=== PATIENT | female | born 1985 | race Caucasian/White ===

== ENCOUNTER 2016-10-30 12:30 | Emergency (ER) | payer OTHER ==
[~2016-10-30] VITALS: Ht 167.6 cm; Wt 102.1 kg
[~2016-10-30 12:30] MED LIST: INTB30 IM
[2016-10-30 12:34] VITALS: TEMP 36.8; Ht 167.6 cm; Wt 102.1 kg
[2016-10-30] MEDS ORDERED: OXYCODONE HCL IR 5 MG TAB (IMMEDIATE RELEASE) PO STA (12:56)
[2016-10-30] MEDS ORDERED: KETOROLAC TROMETHAMINE 60 MG/2 ML VIAL IM STA (12:56)
--- NOTE | 2016-10-30 13:38 | DIAGNOSTIC IMAGING REPORT ---
RIGHT SHOULDER 3 VIEWS CLINICAL HISTORY: Right shoulder pain. No reported history of trauma. FINDINGS: 3 views of the right shoulder are obtained. No prior studies are available for comparison at the time of dictation. The skeletal structures are well mineralized. No fracture or dislocation is seen. The joint spaces are preserved. Minimal calcific tendinopathy is suggested. Fusion hardware is noted in the lower cervical spine. The overlying soft tissues are within normal limits. The imaged right lung parenchyma appears clear. IMPRESSION: 1. No acute bony abnormality is seen in the right shoulder. 2. Question mild calcific tendinopathy. Electronically signed by: Conner Gibson M.D. 10/30/2016 1:36 PM Dictated Date/Time: 10/30/2016 1:35 PM
[2016-10-30 13:53] VITALS: BP 150/98; PULSE 73; O2SAT 97
[2016-10-30] MEDS ORDERED: PRED50TA PO (14:00)
--- NOTE | 2016-10-30 14:01 | EMERGENCY ROOM VISIT NOTE ---
ED Visit Note First contact with patient: 12:44 Chief Complaint: RIGHT Arm/Shoulder Pain History of Present Illness: Patient is a 31-year-old female who presents to the emergency department today for evaluation of her RIGHT shoulder pain. She's had ongoing history of pain in her RIGHT shoulder for the past several weeks. She reports that her shoulder "popped" yesterday and now she has pain and numbness down the arm. She had pain initially, reports that the numbness has persisted since she is not moved her arm secondary to this discomfort. The patient rates her current discomfort as a 10/10. She denies any neck pain, chest pain, pleuritic pain, elbow pain, wrist pain. She is not been evaluated for this to this point. Medications: Reviewed and discussed with the patient. Allergies: Hydrocodone, loratadine PMH: Reviewed and discussed with the patient. SHx: Patient is a 31-year-old female who lives locally. ROS: All pertinent positive and negative review of systems are appropriately documented in the History of Present Illness. Physical Exam: VITAL SIGNS - Vital signs and nursing notes were reviewed. GENERAL - 31-year-old female appearing her stated age and in noticeable discomfort throughout the exam. NECK - FROM of the cervical spine. No spinous process or paraspinal muscle tenderness to palpation. No nuchal rigidity. LUNGS - Chest wall symmetric without accessory muscle use, intercostals retractions, or central cyanosis. Normal vesicular breath sounds CTA B/L. No wheezes, rales, or rhonchi appreciated. CARDIAC - RRR with S1/S2. No murmur, rubs, or gallops appreciated. MUSCULOSKELETAL - Active ROM of the RIGHT shoulder was limited in all directions. 30 of abduction. No step-off deformities of the clavicle were palpable. Subjective tenderness over the AC joint with palpation. Subjective tenderness to palpation at the bicipital insertion. Subjective tenderness to palpation over the deltoid. NEUROLOGIC - SENSORY: Spinothalamic tract was found to be intact with ability to discriminate sharp versus dull sensation at the level of the RIGHT side of the neck down to the fingertips. No sensory deficits of the dorsal column were appreciated utilizing light touch for evaluation. VASCULAR - Capillary refill was brisk. +3/5 radial pulse palpated. IMAGING: RIGHT SHOULDER 3 VIEWS CLINICAL HISTORY: Right shoulder pain. No reported history of trauma. FINDINGS: 3 views of the right shoulder are obtained. No prior studies are available for comparison at the time of dictation. The skeletal structures are well mineralized. No fracture or dislocation is seen. The joint spaces are preserved. Minimal calcific tendinopathy is suggested. Fusion hardware is noted in the lower cervical spine. The overlying soft tissues are within normal limits. The imaged right lung parenchyma appears clear. IMPRESSION: 1. No acute bony abnormality is seen in the right shoulder. 2. Question mild calcific tendinopathy. ED Course: Patient was seen and evaluated by myself. Patient was treated with 60 mg Toradol and 1 OxyIR orally for pain. X-ray of the affected shoulder was obtained. Imaging results as above. Imaging results were reviewed with the patient who acknowledges understanding. I had reviewed the [employer] drug monitoring program website. The patient does receive multiple prescriptions for narcotic pain medications from multiple different providers. The patient was provided a prescription for prednisone to be used for ongoing symptoms. She was encouraged to continue her narcotic prescription to prescribed by other providers. The patient questioned this decision, however I explained her that she would receive no further narcotic pain medications from this point. She was educated on worrisome symptoms for return visit to the emergency department. Patient discharged home in good condition. In the evaluation and treatment of this patient, the following differential diagnoses were considered: Shoulder Contusion, Shoulder Fracture, Shoulder Dislocation, Thoracic Outlet Syndrome, Adhesive Capsulitis, Rotator Cuff Tear, Proximal Clavicle Head Fracture, Apical Pneumonia, Pneumothorax, Hemothorax, or TB. Impression: RIGHT Shoulder Pain - Calcific Tendonitis Discharge Instructions: You have been treated in the Emergency Department for Shoulder Pain - Calcific Tendonitis. You have received pain medicine in the emergency department which impairs your ability to operate a vehicle. It is illegal for you to drive after receiving these medicines. Continue your narcotic pain medication as prescribed. You have been prescribed Prednisone 50 mg to be taken orally once a day for the next 5 days. This is an anti-inflammatory medicine to be used to help minimize your symptoms. You should take the COMPLETE course of the medication. For pain control, you can use the following skcj-lbf-[id number] medicines (if >12 yo): - Regular strength (325mg/tab) Tylenol (acetaminophen) 2 tabs every 4-6 hours as needed. Do not exceed 12 tablets in a 24 hour period. Avoid taking more than 4 grams (4000 mg) of Tylenol per day. This includes any other sources of acetaminophen you may take on a regular basis. - Regular strength (200 mg/tab) Advil (ibuprofen) 1-2 tabs every 4-6 hours as needed. Do not exceed a dose of 3200 mg per day. If this is a recent injury (<24 hrs), ice can be applied to the area of pain for the first 3 days to help decrease pain and inflammation. You have been provided the number for an Orthopaedic Surgeon. You should call this number as soon as possible to establish a follow-up visit from today's Emergency Department visit. Keep the shoulder brace/sling in place until evaluated by Orthopedics. Continue to perform range of motion exercises several times per day to help prevent the development of a "frozen shoulder". Return to the Emergency Department if your current symptoms worsen despite treatment course outlined above, or if you develop any of the following symptoms : intractable pain despite aforementioned treatment course or new onset of numbness or tingling of the arm. Current/Historical Medications Scheduled Cholecalciferol (Vitamin D), 4,000 INTER.UNIT PO DAILY Interferon Beta-1A (Avonex Pen), 30 MCG IM WK Magnesium Chloride (Mag64), 64 MG PO DAILY Montelukast Sodium (Singulair), 10 MG PO DAILY Naratriptan Hcl (Amerge), 2.5 MG PO UD Riboflavin (Vitamin B-2), 200 MG PO BID Scheduled PRN Eletriptan (Relpax), 40 MG PO UD PRN for Migraine Sumatriptan Succinate (Imitrex Statdose), 6 MG IM UD PRN for Migraine Sumatriptan Succinate (Imitrex), 50 MG PO UD PRN for Migraine Allergies Coded Allergies: Loratadine (Verified Allergy, Severe, "TONGUE SWELLS", 10/30/16) Hydrocodone (Verified Adverse Reaction, Unknown, "GETS MIGRAINES WHEN IT WEARS OFF", 10/30/16) Vital Signs Date Time Temp Pulse Resp B/P Pulse Ox O2 Delivery O2 Flow Rate FiO2 10/30/16 13:53 73 16 150/98 97 10/30/16 12:34 36.8 96 18 127/85 97 Room Air Medications Administered Medications (Trade) Dose Ordered Sig/Sunny Route Start Time Stop Time Status Last Admin Dose Admin Ketorolac Tromethamine (Toradol Inj) 60 mg NOW STAT IM 10/30/16 12:56 10/30/16 12:58 DC 10/30/16 13:21 60 MG Oxycodone HCl (Roxicodone Immediate Rel Tab) 5 mg NOW STAT PO 10/30/16 12:56 10/30/16 12:58 DC 10/30/16 13:19 5 MG Departure Information Impression Primary Impression: Shoulder pain, right Additional Impression: Calcific tendinitis of right shoulder Dispostion Home / Self-Care Condition GOOD Referrals Lucio Evans D.O. (PCP) Louis Singh M.D. Patient Instructions ED Tendinitis Calcific, My [facility] Additional Instructions You have been treated in the Emergency Department for Shoulder Pain - Calcific Tendonitis. You have received pain medicine in the emergency department which impairs your ability to operate a vehicle. It is illegal for you to drive after receiving these medicines. Continue your narcotic pain medication as prescribed. You have been prescribed Prednisone 50 mg to be taken orally once a day for the next 5 days. This is an anti-inflammatory medicine to be used to help minimize your symptoms. You should take the COMPLETE course of the medication. For pain control, you can use the following tjln-dlj-rtjyday medicines (if >12 yo): - Regular strength (325mg/tab) Tylenol (acetaminophen) 2 tabs every 4-6 hours as needed. Do not exceed 12 tablets in a 24 hour period. Avoid taking more than 4 grams (4000 mg) of Tylenol per day. This includes any other sources of acetaminophen you may take on a regular basis. - Regular strength (200 mg/tab) Advil (ibuprofen) 1-2 tabs every 4-6 hours as needed. Do not exceed a dose of 3200 mg per day. If this is a recent injury (<24 hrs), ice can be applied to the area of pain for the first 3 days to help decrease pain and inflammation. You have been provided the number for an Orthopaedic Surgeon. You should call this number as soon as possible to establish a follow-up visit from today's Emergency Department visit. Keep the shoulder brace/sling in place until evaluated by Orthopedics. Continue to perform range of motion exercises several times per day to help prevent the development of a "frozen shoulder". Return to the Emergency Department if your current symptoms worsen despite treatment course outlined above, or if you develop any of the following symptoms : intractable pain despite aforementioned treatment course or new onset of numbness or tingling of the arm. Problem Qualifiers Primary Impression: Shoulder pain, right Chronicity: acute Qualified Codes: M25.511 - Pain in right shoulder
[2016-11-13] MEDS ORDERED: RIBO100T9 PO (08:58)
[2016-11-13] MEDS ORDERED: SUMA50TA15 PO (08:58)
[2016-11-13] MEDS ORDERED: SUMA6KIT IM (08:58)
[2016-11-13] MEDS ORDERED: MONT1TAB3 PO (08:58)
[2016-11-13] MEDS ORDERED: SLWMEC PO (08:58)
[2016-11-13] MEDS ORDERED: ELET40TA PO (08:58)
[2016-11-13] MEDS ORDERED: INTE1KIT5 IM (13:00)
[2016-11-13] MEDS ORDERED: NARA2.5T2 PO (15:09)
== END 2016-10-30 14:13 | disposition home or self-care (01) ==
LOC: C.EDB 12:32 → C.EDD 14:13
DX: M75.31 Calcific tendinitis of right shoulder (principal); Z79.899 Other long term (current) drug therapy

== ENCOUNTER 2016-11-13 15:57 | Emergency (ER) | payer OTHER ==
[~2016-11-13] VITALS: Ht 167.6 cm; Wt 100.5 kg
[~2016-11-13 15:57] MED LIST changes: +ELET40TA PO; -INTB30 IM; +INTE1KIT5 IM; +MONT1TAB3 PO; +NARA2.5T2 PO; +RIBO100T9 PO; +SLWMEC PO; +SUMA50TA15 PO; +SUMA6KIT IM
[2016-11-13 16:33] VITALS: TEMP 36.7; Ht 167.6 cm; Wt 100.5 kg
[2016-11-13] MEDS ORDERED: SODIUM CHLORIDE 0.9% 1000ML 1,000 ML IV STA (18:17)
[2016-11-13] MEDS ORDERED: ESCI1TAB10 PO (18:37)
[2016-11-13 18:40] LABS: BASO % 0.6 %; BASO ABS # 0.08 K/uL (0-0.2); COMPLETE YES; EOS % 1.9 %; HEMATOCRIT 42.3 % (37-47); IG% 0.6 %; LYMPH % 26.5 %; LYMPH ABS # 3.38 K/uL (1.2-3.4); MEAN CELL VOLUME 91.6 fL (80-100); MEAN CORPUSCULAR HEMOGLOBIN 31.2 pg (25-34); MEAN PLATELET VOLUME 10.5 fL (7.4-10.4); NEUT % 65.4 %; PLATELET COUNT 306 K/uL (130-400); RED BLOOD COUNT 4.62 M/uL (4.2-5.4); WHITE BLOOD COUNT 12.76 K/uL (4.8-10.8)
[2016-11-13] MEDS ORDERED: MoRPHine SULFATE 4 MG/ML 1 ML CARP\\VIAL IV STA (18:59)
[2016-11-13] MEDS ORDERED: ALBUT/IPRATROP 3MG/0.5MG NEB 3 ML VIAL INH STA ×2 (18:59→21:34)
[2016-11-13 19:05] LABS: CALCIUM 9.3 mg/dl (8.5-10.1); CREATININE 0.68 mg/dl (0.60-1.20); MAGNESIUM 1.9 mg/dl (1.8-2.4); POTASSIUM 3.6 mmol/L (3.5-5.1)
[2016-11-13 19:08] LABS: ALB/GLOB RATIO 0.9 (0.9-2); PHOSPHORUS 2.1 mg/dl (2.5-4.9)
[2016-11-13 19:27] VITALS: O2SAT 99
--- NOTE | 2016-11-13 19:52 | EMERGENCY ROOM VISIT NOTE ---
ED Visit Note First contact with patient: 18:05 I have seen and examined this patient with Lulu Fulton and generally agree with the treatment plan as discussed. Current/Historical Medications Scheduled Cholecalciferol (Vitamin D), 4,000 INTER.UNIT PO DAILY Escitalopram Oxalate (Lexapro), 20 MG PO DAILY Interferon Beta-1A (Avonex Pen), 30 MCG IM WK Magnesium Chloride (Mag64), 64 MG PO DAILY Montelukast Sodium (Singulair), 10 MG PO DAILY Naratriptan Hcl (Amerge), 2.5 MG PO UD Riboflavin (Vitamin B-2), 200 MG PO BID Scheduled PRN Eletriptan (Relpax), 40 MG PO UD PRN for Migraine Sumatriptan Succinate (Imitrex Statdose), 6 MG IM UD PRN for Migraine Sumatriptan Succinate (Imitrex), 50 MG PO UD PRN for Migraine Allergies Coded Allergies: Loratadine (Verified Allergy, Severe, "TONGUE SWELLS", 10/30/16) Hydrocodone (Verified Adverse Reaction, Unknown, "GETS MIGRAINES WHEN IT WEARS OFF", 10/30/16) Vital Signs Date Time Temp Pulse Resp B/P Pulse Ox O2 Delivery O2 Flow Rate FiO2 11/13/16 19:27 99 11/13/16 19:12 76 11/13/16 18:39 74 132/75 96 Room Air 11/13/16 16:33 36.7 80 20 124/82 100 Laboratory Results 11/13/16 18:09 Red Blood Count 4.62, Mean Corpuscular Volume 91.6, Mean Corpuscular Hemoglobin 31.2, Mean Corpuscular Hemoglobin Concent 34.0, Mean Platelet Volume 10.5, Neutrophils (%) (Auto) 65.4, Lymphocytes (%) (Auto) 26.5, Monocytes (%) (Auto) 5.0, Eosinophils (%) (Auto) 1.9, Basophils (%) (Auto) 0.6, Neutrophils # (Auto) 8.34, Lymphocytes # (Auto) 3.38, Monocytes # (Auto) 0.64, Eosinophils # (Auto) 0.24, Basophils # (Auto) 0.08 11/13/16 18:09 Test 11/13/16 18:09 11/13/16 18:23 White Blood Count 12.76 K/uL (4.8-10.8) Red Blood Count 4.62 M/uL (4.2-5.4) Hemoglobin 14.4 g/dL (12.0-16.0) Hematocrit 42.3 % (37-47) Mean Corpuscular Volume 91.6 fL (80-100) Mean Corpuscular Hemoglobin 31.2 pg (25-34) Mean Corpuscular Hemoglobin Concent 34.0 g/dl (32-36) Platelet Count 306 K/uL (130-400) Mean Platelet Volume 10.5 fL (7.4-10.4) Neutrophils (%) (Auto) 65.4 % Lymphocytes (%) (Auto) 26.5 % Monocytes (%) (Auto) 5.0 % Eosinophils (%) (Auto) 1.9 % Basophils (%) (Auto) 0.6 % Neutrophils # (Auto) 8.34 K/uL (1.4-6.5) Lymphocytes # (Auto) 3.38 K/uL (1.2-3.4) Monocytes # (Auto) 0.64 K/uL (0.11-0.59) Eosinophils # (Auto) 0.24 K/uL (0-0.5) Basophils # (Auto) 0.08 K/uL (0-0.2) RDW Standard Deviation 47.3 fL (36.4-46.3) RDW Coefficient of Variation 14.2 % (11.5-14.5) Immature Granulocyte % (Auto) 0.6 % Immature Granulocyte # (Auto) 0.08 K/uL (0.00-0.02) Anion Gap 11.0 mmol/L (3-11) Est Creatinine Clear Calc Drug Dose 140.7 ml/min Estimated GFR () 133.2 Estimated GFR (Non- 114.9 BUN/Creatinine Ratio 10.0 (10-20) Calcium Level 9.3 mg/dl (8.5-10.1) Phosphorus Level 2.1 mg/dl (2.5-4.9) Magnesium Level 1.9 mg/dl (1.8-2.4) Total Bilirubin 0.3 mg/dl (0.2-1) Aspartate Amino Transf (AST/SGOT) 14 U/L (15-37) Alanine Aminotransferase (ALT/SGPT) 19 U/L (12-78) Alkaline Phosphatase 91 U/L (45-117) Total Protein 7.8 gm/dl (6.4-8.2) Albumin 3.6 gm/dl (3.4-5.0) Globulin 4.2 gm/dl (2.5-4.0) Albumin/Globulin Ratio 0.9 (0.9-2) Bedside Lactic Acid Venous 0.84 mmol/L (0.90-1.70) Medications Administered Medications (Trade) Dose Ordered Sig/Sunny Route Start Time Stop Time Status Last Admin Dose Admin Sodium Chloride (Nss 1000ml) 1,000 ml @ 999 mls/hr Q1H1M STAT IV 11/13/16 18:17 11/13/16 19:17 DC 11/13/16 18:56 999 MLS/HR Albuterol/ Ipratropium (Duoneb) 3 ml NOW STAT INH 11/13/16 18:59 11/13/16 19:00 DC 11/13/16 19:25 3 ML Morphine Sulfate (MoRPHine SULFATE INJ) 4 mg NOW STAT IV 11/13/16 18:59 11/13/16 19:00 DC 11/13/16 19:25 4 MG Departure Information Referrals Lucio Evans, D.O. (PCP) Patient Instructions My [facility]
--- NOTE | 2016-11-13 19:53 | DIAGNOSTIC IMAGING REPORT ---
CHEST 2 VIEWS ROUTINE CLINICAL HISTORY: sob, dx with b/l pneumonia yesterday pneumonia COMPARISON STUDY: No previous studies for comparison. FINDINGS: Interstitial changes throughout both hemithoraces. This is perhaps most prominent at the lung bases. There are no consolidative infiltrative changes. No evidence for cardiac enlargement. Pulmonary apices are clear. IMPRESSION: Interstitial parenchymal infiltrative changes throughout the mid to lower lung regions bilaterally. Electronically signed by: Chase Ayala M.D. 11/13/2016 7:52 PM Dictated Date/Time: 11/13/2016 7:51 PM
[2016-11-13] MEDS ORDERED: MoRPHine SULFATE 2 MG/ML CARP IV STA (20:38)
[2016-11-13] MEDS ORDERED: LEVAQUIN 750MG / 150ML D5W IV ONE (20:45)
[2016-11-13] MEDS ORDERED: LEVO750T23 PO (21:00)
--- NOTE | 2016-11-13 21:01 | EMERGENCY ROOM VISIT NOTE ---
History First contact with patient: 18:05 Chief Complaint: RESPIRATORY PROBLEMS Stated Complaint: CHEST PAIN, BILATERAL PNEUMONIA Nursing Triage Summary: signed out AMA from [facility] told she has pnx with WBC 34 yesterday is here with SOB and chest pain yellow sputum History of Present Illness The patient is a 31 year old female who presents to the Emergency Room with complaints of cough and shortness of breath which began several days ago. The patient reports that she was seen at [place] emergency department yesterday and had a white blood cell count of 34,000 and bilateral pneumonias. The patient states that she did not like the provider who was taking care of her as an inpatient, so she signed out AGAINST MEDICAL ADVICE. She complains of continued cough, shortness of breath and chest pain with coughing. She states her cough is productive of a yellow sputum. She rates her overall discomfort a 10/10. She complains of a migraine as well, which is typical of her migraines. She does have a history of asthma. She states that she was treated with a dose of IV Levaquin yesterday. She has not been taking any medications since discharge. She denies any abdominal pain, nausea, vomiting, neck pain/ stiffness or fevers. Review of Systems A complete 10-point Review of Systems was discussed with the patient, with pertinent positives and negatives listed in the History of Present Illness. All remaining Review of Systems questions can be considered negative unless otherwise specified. Social History Smoking Status: Former Smoker Marital Status: single Occupation Status: disabled Current/Historical Medications Scheduled Cholecalciferol (Vitamin D), 4,000 INTER.UNIT PO DAILY Escitalopram Oxalate (Lexapro), 20 MG PO DAILY Interferon Beta-1A (Avonex Pen), 30 MCG IM WK Levofloxacin (Levaquin), 1 TAB PO DAILY Magnesium Chloride (Mag64), 64 MG PO DAILY Montelukast Sodium (Singulair), 10 MG PO DAILY Naratriptan Hcl (Amerge), 2.5 MG PO UD Riboflavin (Vitamin B-2), 200 MG PO BID Scheduled PRN Eletriptan (Relpax), 40 MG PO UD PRN for Migraine Sumatriptan Succinate (Imitrex Statdose), 6 MG IM UD PRN for Migraine Sumatriptan Succinate (Imitrex), 50 MG PO UD PRN for Migraine Allergies Coded Allergies: Loratadine (Verified Allergy, Severe, "TONGUE SWELLS", 10/30/16) Hydrocodone (Verified Adverse Reaction, Unknown, "GETS MIGRAINES WHEN IT WEARS OFF", 10/30/16) Physical Exam Vital Signs Date Time Temp Pulse Resp B/P Pulse Ox O2 Delivery O2 Flow Rate FiO2 11/13/16 22:51 90 18 122/70 96 11/13/16 21:16 70 16 118/64 96 Room Air 11/13/16 20:40 79 18 129/84 95 Room Air 11/13/16 19:27 99 11/13/16 19:12 76 11/13/16 18:39 74 132/75 96 Room Air 11/13/16 16:33 36.7 80 20 124/82 100 Physical Exam VITALS: Vitals are noted on the nurse's note and reviewed by myself. Vital signs stable. GENERAL: This is a 31-year-old female, in no acute distress, nontoxic in appearance, well-developed well-nourished. SKIN: Capillary reflex less than 2 seconds. HEENT: Normocephalic. PERRLA. EOMI. Nares patent. Mucous membranes moist. Neck is supple without nuchal rigidity. HEART: Regular rate and rhythm without murmurs gallops or rubs. LUNGS: Slightly decreased lung sounds bilateral bases. No retractions or accessory muscle use. ABDOMEN: Soft, nontender to palpation. NEURO: Patient was alert and oriented to person place and time. Medical Decision & Procedures ER Provider Diagnostic Interpretation: CHEST 2 VIEWS ROUTINE CLINICAL HISTORY: sob, dx with b/l pneumonia yesterday pneumonia COMPARISON STUDY: No previous studies for comparison. FINDINGS: Interstitial changes throughout both hemithoraces. This is perhaps most prominent at the lung bases. There are no consolidative infiltrative changes. No evidence for cardiac enlargement. Pulmonary apices are clear. IMPRESSION: Interstitial parenchymal infiltrative changes throughout the mid to lower lung regions bilaterally. Laboratory Results 11/13/16 18:09 Red Blood Count 4.62, Mean Corpuscular Volume 91.6, Mean Corpuscular Hemoglobin 31.2, Mean Corpuscular Hemoglobin Concent 34.0, Mean Platelet Volume 10.5, Neutrophils (%) (Auto) 65.4, Lymphocytes (%) (Auto) 26.5, Monocytes (%) (Auto) 5.0, Eosinophils (%) (Auto) 1.9, Basophils (%) (Auto) 0.6, Neutrophils # (Auto) 8.34, Lymphocytes # (Auto) 3.38, Monocytes # (Auto) 0.64, Eosinophils # (Auto) 0.24, Basophils # (Auto) 0.08 11/13/16 18:09 Test 11/13/16 18:09 11/13/16 18:23 White Blood Count 12.76 K/uL (4.8-10.8) Red Blood Count 4.62 M/uL (4.2-5.4) Hemoglobin 14.4 g/dL (12.0-16.0) Hematocrit 42.3 % (37-47) Mean Corpuscular Volume 91.6 fL (80-100) Mean Corpuscular Hemoglobin 31.2 pg (25-34) Mean Corpuscular Hemoglobin Concent 34.0 g/dl (32-36) Platelet Count 306 K/uL (130-400) Mean Platelet Volume 10.5 fL (7.4-10.4) Neutrophils (%) (Auto) 65.4 % Lymphocytes (%) (Auto) 26.5 % Monocytes (%) (Auto) 5.0 % Eosinophils (%) (Auto) 1.9 % Basophils (%) (Auto) 0.6 % Neutrophils # (Auto) 8.34 K/uL (1.4-6.5) Lymphocytes # (Auto) 3.38 K/uL (1.2-3.4) Monocytes # (Auto) 0.64 K/uL (0.11-0.59) Eosinophils # (Auto) 0.24 K/uL (0-0.5) Basophils # (Auto) 0.08 K/uL (0-0.2) RDW Standard Deviation 47.3 fL (36.4-46.3) RDW Coefficient of Variation 14.2 % (11.5-14.5) Immature Granulocyte % (Auto) 0.6 % Immature Granulocyte # (Auto) 0.08 K/uL (0.00-0.02) Anion Gap 11.0 mmol/L (3-11) Est Creatinine Clear Calc Drug Dose 140.7 ml/min Estimated GFR () 133.2 Estimated GFR (Non- 114.9 BUN/Creatinine Ratio 10.0 (10-20) Calcium Level 9.3 mg/dl (8.5-10.1) Phosphorus Level 2.1 mg/dl (2.5-4.9) Magnesium Level 1.9 mg/dl (1.8-2.4) Total Bilirubin 0.3 mg/dl (0.2-1) Aspartate Amino Transf (AST/SGOT) 14 U/L (15-37) Alanine Aminotransferase (ALT/SGPT) 19 U/L (12-78) Alkaline Phosphatase 91 U/L (45-117) Total Protein 7.8 gm/dl (6.4-8.2) Albumin 3.6 gm/dl (3.4-5.0) Globulin 4.2 gm/dl (2.5-4.0) Albumin/Globulin Ratio 0.9 (0.9-2) Bedside Lactic Acid Venous 0.84 mmol/L (0.90-1.70) Medications Administered Medications (Trade) Dose Ordered Sig/Sunny Route Start Time Stop Time Status Last Admin Dose Admin Sodium Chloride (Nss 1000ml) 1,000 ml @ 999 mls/hr Q1H1M STAT IV 11/13/16 18:17 11/13/16 19:17 DC 11/13/16 18:56 999 MLS/HR Albuterol/ Ipratropium (Duoneb) 3 ml NOW STAT INH 11/13/16 18:59 11/13/16 19:00 DC 11/13/16 19:25 3 ML Morphine Sulfate (MoRPHine SULFATE INJ) 4 mg NOW STAT IV 11/13/16 18:59 11/13/16 19:00 DC 11/13/16 19:25 4 MG Levofloxacin (Levaquin / D5W) 750 mg NOW ONCE IV 11/13/16 20:45 11/13/16 20:46 DC 11/13/16 21:05 750 MG Morphine Sulfate (MoRPHine SULFATE INJ) 2 mg NOW STAT IV 11/13/16 20:38 11/13/16 20:40 DC 11/13/16 21:05 2 MG Albuterol/ Ipratropium (Duoneb) 3 ml NOW STAT INH 11/13/16 21:34 11/13/16 21:36 DC 11/13/16 21:34 3 ML Medical Decision Differential diagnosis includes pneumonia, URI, sepsis, pulmonary embolism, asthma exacerbation, among others. The patient was evaluated as above. Labs were drawn and IV access was obtained. Blood cultures were drawn. Imaging studies were performed and read by radiology as above. The patient was medicated as above. The patient was reassessed multiple times during their stay in the emergency department and remained in stable condition. The patient is a 31-year-old female who presents today complaining of bilateral lower lobe pneumonia diagnosed yesterday at [facility] emergency department. Her WBC count at that time was allegedly 34,000. She arrives afebrile and nontoxic in appearance. For this reason, blood cultures were drawn. Point-of- care lactic acid was within normal limits. Labs revealed in mild leukocytosis of 12,000. No concerning anemia or electrolyte abnormalities. EKG was interpreted by myself and showed a normal sinus rhythm. Chest x-ray showed infiltrative changes bilaterally, but no significant consolidation. The patient was even a DuoNeb treatment. I do feel that she has improved significantly since yesterday, likely due to the dose of IV Levaquin she received. She did receive a second dose of IV Levaquin here. She received a second DuoNeb treatment. She did receive a total of 6 morphine for a migraine. I do feel the patient is stable for discharge home. Her vitals are within normal limits and oxygen saturations were close to 100% throughout her stay. The patient was informed to return immediately if she has worsening symptoms. Otherwise, she will follow-up with her primary care provider for reevaluation. Based on the patient's presentation, lab results, and imaging studies, I feel the patient is stable for outpatient treatment. The patient was independently evaluated by Dr. Carmichael, ED attending physician, who agreed with my assessment and treatment plan. Discharge instructions were reviewed with the patient. The patient verbalized understanding of my assessment and treatment plan and was discharged home in good condition. Impression Primary Impression: Pneumonia Departure Information Dispostion Home / Self-Care Condition GOOD Prescriptions Levofloxacin (LEVAQUIN) 750 Mg Tab 1 TAB PO DAILY for 7 Days, #7 TAB Prov: Lulu Fulton .ANNE MARIE 11/13/16 Referrals Lucio Evans, D.OSaida (PCP) Patient Instructions My [facility] Additional Instructions You were prescribed Levaquin to be taken once daily for 7 days. This is an antibiotic. All antibiotics have the potential to cause diarrhea. Stop this medication and contact a medical provider if you were to develop any significant adverse side effects including: wheezing, shortness of breath, passing out, vomiting, or a diffuse rash. Always take antibiotics as directed and COMPLETE the ENTIRE course regardless of the improvement of your symptoms. For pain control, you can use the following [id number] medicines (if >12 yo): - Regular strength (325mg/tab) Tylenol (acetaminophen) 2 tabs every 4-6 hours as needed. Do not exceed 12 tablets in a 24 hour period. Avoid taking more than 4 grams (4000 mg) of Tylenol per day. This includes any other sources of acetaminophen you may take on a regular basis. - Regular strength (200 mg/tab) Advil (ibuprofen) 1-2 tabs every 4-6 hours as needed. Do not exceed a dose of 3200 mg per day. Follow-up with your primary care provider at the end of your antibiotics for reevaluation. Return to the emergency department with worsening shortness of breath, worsening chest pain or any other new/concerning symptoms. Problem Qualifiers Primary Impression: Pneumonia Pneumonia type: due to unspecified organism Laterality: bilateral Lung location: lower lobe of lung Qualified Codes: J18.9 - Pneumonia, unspecified organism
[2016-11-13] MEDS ORDERED: CHOL200010 PO (21:55)
[2016-11-13 22:51] VITALS: BP 122/70; PULSE 90; O2SAT 96
== END 2016-11-13 22:53 | disposition home or self-care (01) ==
LOC: C.EDB 15:59
DX: J18.9 Pneumonia, unspecified organism (principal); J45.909 Unspecified asthma, uncomplicated; Z79.899 Other long term (current) drug therapy; Z87.891 Personal history of nicotine dependence

== ENCOUNTER 2017-03-15 10:49 | Observation (INO) | payer OTHER ==
[~2017-03-15] VITALS: Ht 170.2 cm; Wt 100.0 kg
[~2017-03-15 10:49] MED LIST changes: +CHOL200010 PO; +ESCI1TAB10 PO
[2017-03-15] MEDS ORDERED: MoRPHine SULFATE 4 MG/ML 1 ML CARP\\VIAL IV STA (11:16)
[2017-03-15] MEDS ORDERED: ONDANSETRON INJ 2 MG/ML 2 ML VIAL IV STA ×2 (11:16→14:03)
--- NOTE | 2017-03-15 11:23 | EMERGENCY ROOM VISIT NOTE ---
History Report prepared by Sincere: Isabella Kebede Under the Supervision of: Dr. Lance Zhao M.D. First contact with patient: 11:06 Chief Complaint: BACK PAIN Stated Complaint: BACK PAIN, ARMS AND LEGS ARE NUMB History of Present Illness The patient is a 32 year old female who presents to the Emergency Room with complaints of persistent lower back pain for the last two days. She currently rates her discomfort as a 10/10 in severity. The patient reports chronic back problems intermittently over the last twelve years. She additionally reports that she is prescribed Percocet 10-325 twice per day for her chronic neck pain. The patient states that her pain worsens with movement, but denies any injury. She reports numbness to her arms and legs. The patient additionally associates nausea from her pain. She reports that she has tried her prescribed pain medications and Tylenol for her discomfort without relief. The patient notes a surgical history of a disc replacement in her neck. She denies any fever, abdominal pain, or loss of control of her bowel or bladder. Source of History: patient Onset: last two days Position: back (lower) Symptom Intensity: 10/10 Timing: other (persistent) Associated Symptoms: + nausea, + numbness (arms and legs), No fevers, No abdominal pain Review of Systems See HPI for pertinent positives & negatives. A total of 10 systems reviewed and were otherwise negative. Past Medical & Surgical Medical Problems: (1) Asthma (2) Bronchitis (3) Intractable low back pain (4) Multiple sclerosis (5) Multiple sclerosis exacerbation Old medical records were reviewed. Nurse's notes were reviewed and I agree with. Family History FH: lung disease FHx: cancer Stroke Social History Smoking Status: Never Smoker Alcohol Use: none Marital Status: in relationship Housing Status: lives with significant other Occupation Status: disabled Current/Historical Medications Scheduled Cholecalciferol (Vitamin D), 4,000 INTER.UNIT PO DAILY Escitalopram Oxalate (Lexapro), 20 MG PO DAILY Interferon Beta-1A (Avonex Pen), 30 MCG IM WK Magnesium Chloride (Slow-Mag Tab), 64 MG PO DAILY Montelukast Sodium (Singulair), 10 MG PO DAILY Naratriptan Hcl (Amerge), 2.5 MG PO UD Riboflavin (Vitamin B-2), 200 MG PO BID Scheduled PRN Eletriptan (Relpax), 40 MG PO UD PRN for Migraine Oxycodone/Acetaminophen 10MG/325MG (Percocet 10MG/325MG), 1 TAB PO Q12 PRN for Pain Sumatriptan Succinate (Imitrex Statdose), 6 MG IM UD PRN for Migraine Sumatriptan Succinate (Imitrex), 50 MG PO UD PRN for Migraine Allergies Coded Allergies: Loratadine (Verified Allergy, Severe, "TONGUE SWELLS", 03/15/17) Hydrocodone (Verified Adverse Reaction, Intermediate, "GETS MIGRAINES WHEN IT WEARS OFF", 03/15/17) Physical Exam Vital Signs Date Time Temp Pulse Resp B/P (MAP) Pulse Ox O2 Delivery O2 Flow Rate FiO2 03/15/17 16:32 129/88 03/15/17 16:24 79 97 03/15/17 16:03 03/15/17 15:03 03/15/17 14:54 71 20 94 03/15/17 14:32 120/67 03/15/17 14:24 75 24 97 03/15/17 14:19 72 15 97 03/15/17 14:02 114/92 03/15/17 13:49 70 25 96 03/15/17 13:32 133/102 03/15/17 13:19 79 14 96 03/15/17 13:02 144/77 03/15/17 12:49 60 95 03/15/17 12:32 135/101 03/15/17 12:19 70 22 97 03/15/17 12:10 66 03/15/17 12:02 156/101 03/15/17 11:49 68 20 99 03/15/17 11:33 148/102 03/15/17 10:59 36.6 79 18 134/91 99 Room Air Physical Exam General: Well developed well nourished young female, teary eyed intermittently, appears upset, complaining of back pain, breathing comfortably on room air. Normal speech HEENT: Normal cephalic atraumatic. Pupils are equal round and reactive to light. Extraocular movements are intact. Oropharynx is pink with moist mucous membranes. No swelling of the mouth lips or tongue. Neck: Supple with a midline trachea. No meningeal signs or stiffness, no JVD or bruits. No Stridor. Chest: Clear to auscultation bilaterally. No wheezes or rhonchi. No increased work of breathing. Heart: regular rate and rhythm. Abdomen: Soft nontender, nondistended without rebound guarding or rigidity. Extremities: No cyanosis clubbing or edema. No calf tenderness or assymetry Spine/Back. Mildly tender to central lumbar back. No CVA tenderness Skin: Good turgor without rashes. Neurologic exam: Cranial nerves two through 12 are intact. Intact reflexes, subjective decreased sensation throughout upper and lower extremities, but normal motor. Medical Decision & Procedures Laboratory Results 03/15/17 11:50 Red Blood Count 4.82, Mean Corpuscular Volume 88.2, Mean Corpuscular Hemoglobin 30.3, Mean Corpuscular Hemoglobin Concent 34.4, Mean Platelet Volume 10.3, Neutrophils (%) (Auto) 70.3, Lymphocytes (%) (Auto) 24.2, Monocytes (%) (Auto) 4.3, Eosinophils (%) (Auto) 0.6, Basophils (%) (Auto) 0.3, Neutrophils # (Auto) 6.90, Lymphocytes # (Auto) 2.37, Monocytes # (Auto) 0.42, Eosinophils # (Auto) 0.06, Basophils # (Auto) 0.03 03/15/17 11:50 Test 03/15/17 11:35 03/15/17 11:50 Urine Color DK YELLOW Urine Appearance CLOUDY (CLEAR) Urine pH 6.5 (4.5-7.5) Urine Specific [place] 1.027 (1.000-1.030) Urine Protein TRACE (NEG) Urine Glucose (UA) NEG (NEG) Urine Ketones 4+ (NEG) Urine Occult Blood NEG (NEG) Urine Nitrite NEG (NEG) Urine Bilirubin NEG (NEG) Urine Urobilinogen NEG (NEG) Urine Leukocyte Esterase NEG (NEG) Urine WBC (Auto) 5-10 /hpf (0-5) Urine RBC (Auto) 0-4 /hpf (0-4) Urine Hyaline Casts (Auto) 0 /lpf (0-5) Urine Epithelial Cells (Auto) >30 /lpf (0-5) Urine Bacteria (Auto) 1+ (NEG) Urine Pathogenic Casts /lpf (0) White Blood Count 9.81 K/uL (4.8-10.8) Red Blood Count 4.82 M/uL (4.2-5.4) Hemoglobin 14.6 g/dL (12.0-16.0) Hematocrit 42.5 % (37-47) Mean Corpuscular Volume 88.2 fL (80-100) Mean Corpuscular Hemoglobin 30.3 pg (25-34) Mean Corpuscular Hemoglobin Concent 34.4 g/dl (32-36) Platelet Count 256 K/uL (130-400) Mean Platelet Volume 10.3 fL (7.4-10.4) Neutrophils (%) (Auto) 70.3 % Lymphocytes (%) (Auto) 24.2 % Monocytes (%) (Auto) 4.3 % Eosinophils (%) (Auto) 0.6 % Basophils (%) (Auto) 0.3 % Neutrophils # (Auto) 6.90 K/uL (1.4-6.5) Lymphocytes # (Auto) 2.37 K/uL (1.2-3.4) Monocytes # (Auto) 0.42 K/uL (0.11-0.59) Eosinophils # (Auto) 0.06 K/uL (0-0.5) Basophils # (Auto) 0.03 K/uL (0-0.2) RDW Standard Deviation 43.3 fL (36.4-46.3) RDW Coefficient of Variation 13.4 % (11.5-14.5) Immature Granulocyte % (Auto) 0.3 % Immature Granulocyte # (Auto) 0.03 K/uL (0.00-0.02) Prothrombin Time 11.0 SECONDS (9.0-12.0) Prothromb Time International Ratio 1.0 (0.9-1.1) Activated Partial Thromboplast Time 27.8 SECONDS (21.0-31.0) Partial Thromboplastin Ratio 1.1 Anion Gap 12.0 mmol/L (3-11) Est Creatinine Clear Calc Drug Dose 192.6 ml/min Estimated GFR () 146.4 Estimated GFR (Non- 126.3 BUN/Creatinine Ratio 13.6 (10-20) Calcium Level 8.7 mg/dl (8.5-10.1) Total Bilirubin 0.4 mg/dl (0.2-1) Direct Bilirubin < 0.1 mg/dl (0-0.2) Aspartate Amino Transf (AST/SGOT) 13 U/L (15-37) Alanine Aminotransferase (ALT/SGPT) 16 U/L (12-78) Alkaline Phosphatase 97 U/L (45-117) Total Protein 7.5 gm/dl (6.4-8.2) Albumin 3.5 gm/dl (3.4-5.0) Lipase 69 U/L (73-393) Human Chorionic Gonadotropin, Qual NEG (NEG) Laboratory studies as stated above per my review. Medications Administered Medications (Trade) Dose Ordered Sig/Sunny Route Start Time Stop Time Status Last Admin Dose Admin Morphine Sulfate (MoRPHine SULFATE INJ) 4 mg NOW STAT IV 03/15/17 11:16 03/15/17 11:18 DC 03/15/17 11:58 4 MG Ondansetron HCl (Zofran Inj) 4 mg NOW STAT IV 03/15/17 11:16 03/15/17 11:18 DC 03/15/17 11:58 4 MG Ketorolac Tromethamine (Toradol Inj) 30 mg NOW STAT IV 03/15/17 12:32 03/15/17 12:33 DC 03/15/17 13:08 30 MG Morphine Sulfate (MoRPHine SULFATE INJ) 2 mg NOW STAT IV 03/15/17 14:03 03/15/17 14:04 DC 03/15/17 14:16 2 MG Ondansetron HCl (Zofran Inj) 4 mg NOW STAT IV 03/15/17 14:03 03/15/17 14:04 DC 03/15/17 14:16 4 MG Oxycodone/ Acetaminophen (Percocet 10-325MG Tab) 1 tab Q12 PRN PO 03/15/17 15:00 03/29/17 14:59 03/15/17 16:19 1 TAB Potassium Chloride (Klor-Con M10) 40 meq NOW STAT PO 03/15/17 16:08 03/15/17 16:09 DC 03/15/17 16:19 40 MEQ Lorazepam (Ativan Inj) 2 mg STK-MED ONCE .ROUTE 03/15/17 15:14 03/15/17 15:15 DC 03/15/17 15:20 0.5 MG ECG Indication: back/shoulder pain Rate (beats per minute): 59 Rhythm: sinus bradycardia Findings: no acute ischemic change, no ectopy Comparison ECG Date: 11/13/16 Change: no significant change ED Course 1108: Past medical records reviewed. The patient was evaluated in room B2, and a complete history and physical examination were performed. 1116: Ordered Zofran Inj 4 mg IV, Morphine Sulfate 4 mg IV. 1210: I reevaluated the patient and she is more comfortable, but nauseated. 1227: I reevaluated the patient and she is a little more comfortable, but is requesting more pain medication. 1232: Ordered Toradol Inj 30 mg IV. 1400: I reevaluated the patient and she is still in pain. I discussed all the exam findings with her and I discussed the treatment plan. She verbalized complete understanding and agreement. She is going to be evaluated for further treatment. 1403: Ordered Zofran Inj 4 mg IV, Morphine Sulfate 2 mg IV. 1415: I discussed the patients case with Dino Acuna. He is going to evaluate the patient for further treatment. Medical Decision Differentials include, but are not limited to; low back pain, disc disease, infection, MS exacerbation, spinal process. Blood Pressure Screening: Patient was found to have a slightly eleated blood pressure due to circumstances. I do not believe that the patient requires hypertension monitoring. Medication Reconciliation: I attest that I have personally reviewed the patient' s current medication list. This patient comes in as described above. She was placed in room B2. she is having severe low back pain centrally. She also complains of it feeling numb in all 4 extremities. She does have a history of MS. She also has a history of neck problems but says it's not been acting up too much lately, she has been getting injections in her neck but says she is due for one. She's had no fever or chills or trauma. No headache, neck pain, or stiffness. IV access established was given IV morphine and Zofran. She received additional IV morphine and Toradol IV and was still having a lot of pain. She's had no acute electrode or metabolic abnormalities. She's had no fever or chills. I think this most likely is related to her back although her low back does not when the tingling in her arms. It a could be related to her MS although I think that's less likely , she will likely need extensive MRIs of her back neck and/or head potentially if she is not getting better . I do think she needs to be admitted to the hospital for pain management and observation and further workup. I have consulted Dr. Alvarado who saw her in the ER. Consults Time Called: 1401 Consulting Physician: Dino Acuna Returned Call: [phone] I discussed the patients case with Dino Acuna. He is going to evaluate the patient for further treatment. Impression Primary Impression: Low back pain Additional Impression: Numbness Scribe Attestation The scribe's documentation has been prepared under my direction and personally reviewed by me in its entirety. I confirm that the note above accurately reflects all work, treatment, procedures, and medical decision making performed by me. Departure Information Dispostion Being Evaluated By Hospitalist Referrals Lucio Evans D.O. (PCP) Problem Qualifiers
[2017-03-15] MEDS ORDERED: OXYC-106 PO (11:33)
[2017-03-15 11:55] LABS: URINE APPEARANCE CLOUDY (CLEAR); URINE COLOR DK YELLOW; URINE EPITHELIAL CELL AUTO >30 /lpf (0-5); URINE NITRITE NEG (NEG); URINE PH 6.5 (4.5-7.5); URINE SPECIFIC GRAVITY 1.027 (1.000-1.030); UROBILINOGEN NEG (NEG)
[2017-03-15 12:00] LABS: MANUAL MICROSCOPIC REQUIRED? NO; REVIEW REQ? YES; URINE BILIRUBIN NEG (NEG)
[2017-03-15 12:14] LABS: BASO % 0.3 %; BASO ABS # 0.03 K/uL (0-0.2); COMPLETE YES; EOS % 0.6 %; HEMATOCRIT 42.5 % (37-47); IG% 0.3 %; LYMPH % 24.2 %; LYMPH ABS # 2.37 K/uL (1.2-3.4); MEAN CELL VOLUME 88.2 fL (80-100); MEAN CORPUSCULAR HEMOGLOBIN 30.3 pg (25-34); MEAN CORPUSCULAR HGB CONC 34.4 g/dl (32-36); MEAN PLATELET VOLUME 10.3 fL (7.4-10.4); MONO % 4.3 %; NEUT % 70.3 %; PLATELET COUNT 256 K/uL (130-400); RED BLOOD COUNT 4.82 M/uL (4.2-5.4); WHITE BLOOD COUNT 9.81 K/uL (4.8-10.8)
[2017-03-15] MEDS ORDERED: KETOROLAC TROMETHAMINE 30 MG/ML VIAL IV STA ×2 (12:32→21:57)
[2017-03-15 12:34] LABS: BLOOD UREA NITROGEN 7 mg/dl (7-18); BUN/CREATININE RATIO 13.6 (10-20); CALCIUM 8.7 mg/dl (8.5-10.1); CARBON DIOXIDE 18 mmol/L (21-32); CHLORIDE 110 mmol/L (98-107); GLUCOSE 90 mg/dl (70-99); POTASSIUM 3.4 mmol/L (3.5-5.1); SODIUM 140 mmol/L (136-145)
[2017-03-15 12:36] LABS: ALKALINE PHOSPHATASE 97 U/L (45-117); ALT/SGPT 16 U/L (12-78); AST/SGOT 13 U/L (15-37)
[2017-03-15 12:39] LABS: PREG INTERNAL NEGATIVE QC NEG CLEAR BACKGROUND; PREG INTERNAL POSITIVE QC POS CONTROL LINE
[2017-03-15] MEDS ORDERED: MoRPHine SULFATE 2 MG/ML CARP IV STA (14:03)
[2017-03-15] MEDS ORDERED: ONDANSETRON INJ 2 MG/ML 2 ML VIAL IV PRN (15:00)
[2017-03-15] MEDS ORDERED: ELETRIPTAN 40 MG PO PRN (15:00)
[2017-03-15] MEDS ORDERED: NON-FORMULARY MEDICATION (Naratriptan Hcl (Amerge) 2.5 MG) PO SCH (15:00)
[2017-03-15] MEDS ORDERED: LORAZEPAM 2 MG/ML 1 ML VIAL ONE (15:14)
[2017-03-15] MEDS ORDERED: NURSING VERBAL MED ORDER ONE (15:30)
[2017-03-15] MEDS ORDERED: SUMATRIPTAN SUCCINATE 6 MG/0.5 ML VIAL SQ PRN (15:30)
--- NOTE | 2017-03-15 15:40 | HISTORY & PHYSICAL EXAMINATION ---
DATE OF ADMISSION: 03/15/2017 PRIMARY CARE PHYSICIAN: Dr. Evans. CHIEF COMPLAINT: Increasing back pain for the last 2 days with inability to walk since this morning. HISTORY OF PRESENT COMPLAINT: She is a 32-year-old female with significant past medical history including multiple sclerosis, anxiety/depression, chronic back pain, history of intermittent asthma, apparently has been complaining of back pain for the last 2 days. She contacted her primary care's office for that and they are going to put her appointment with the pain therapist as an outpatient. She has had injection by the pain therapist over 1 year ago for ongoing back pain. She complains to have pain at the lower back for the last 2 days and this morning the pain was worse with radiation down to the legs and also bilateral over buttocks area and she also complained to have numbness or tingling involving the upper and lower extremities. She could hardly walk this morning thus she was brought to the Emergency Room. No fever, chills or rigors. No problem with urine and/or bowel habit. He does not have any headache, any blurred vision or any weakness involving any side in particular. No chest pain, shortness of breath or palpitation. PAST MEDICAL HISTORY: Significant for multiple sclerosis, anxiety/depression, chronic neck and back pain, migraine and history of intermittent asthma. PAST SURGICAL HISTORY: Significant for neck surgery by Dr. White 2012, cholecystectomy, repair of the nasal septum and sinus surgery. FAMILY HISTORY: Mother has asthma. Sister has asthma. No other significant family history. SOCIAL HISTORY: She is single. She lives with her fiance. She does not have any children. She does not smoke, does not drink and she has been reasonably ambulant. ALLERGIES: HYDROCODONE AND LORATADINE. MEDICATIONS: She has been on interferon beta 30 mcg IM every week, vitamin D 2000 unit tablet 2 tablets daily, Relpax 40 mg as directed for migraine, Lexapro 20 mg daily, magnesium chloride 264 mg daily, Singulair 10 mg daily, Amerge 2.5 mg daily as directed, hydrocodone/acetaminophen 10/325 one tablet q. 12 hourly as needed, riboflavin 200 mg b.i.d., Imitrex 50 mg tablet as directed. REVIEW OF SYSTEMS: As in history of present complaint. PHYSICAL EXAMINATION: GENERAL: On examination in the Emergency Room, she was not having any acute distress. Her numbness and tingling was improving when I saw her. VITAL SIGNS: Temperature 36.6, pulse was 79, blood pressure 148/102. Saturation >90% on room air. HEAD, EYES, EARS, NOSE, AND THROAT: Unremarkable. NECK: No neck stiffness. Neck was supple. CHEST: Clear to auscultation bilaterally. HEART: S1, S2 regular, no murmur. ABDOMEN: Soft, benign, nontender, no organomegaly. Bowel sounds present. EXTREMITIES: Negative for any edema. MUSCULOSKELETAL SYSTEM: Did not show any acute arthritis involving any joint. CENTRAL NERVOUS SYSTEM: She was alert, awake, oriented x3. She did not have any focal sensory and/or motor deficit during my examination. Her straight leg raising did not cause any pain at the back or any radiation of the pain. LABORATORY DATA: Noted today white count was 9.81, H&H 14.4/42.5, platelet was 256. Sodium 140, potassium 3.4, chloride 110, carbon dioxide 18, BUN 7, creatinine 0.50, random glucose 90. LFTs unremarkable. Lipase was 69. HCG negative. UA examination unremarkable. IMAGING STUDIES: An MRI of the lumbar spine pending. IMPRESSION AND PLAN: 1. Low back pain with possible radiculopathy. She will be admitted to medical floor. MRI of the lumbar spine will be done. He has a history of bulged disc. She feels that this is worst. A pain therapy consult and pain medications as needed. 2. Multiple sclerosis. Doubt whether she has any flare up of multiple sclerosis. She does have pain all over the body. Neck, back and also numbness and tingling involving all the extremities. Will continue her medications and get a neurological evaluation while in the hospital. 3. Anxiety/depression. Continue with Lexapro. 4. Intermittent asthma, not in any acute distress at this time. Continue Singulair. She does not have any inhaled bronchodilator, as needed will put her on. 5. Deep venous thrombosis prophylaxis with subQ heparin. 6. CODE STATUS -- HE WILL BE A FULL CODE. In my clinical judgment, the beneficiary meets criteria as per CMS for 2 midnight stay in the hospital. BRIDGET
--- NOTE | 2017-03-15 16:02 | DIAGNOSTIC IMAGING REPORT ---
MRI OF THE LUMBAR SPINE WITHOUT CONTRAST CLINICAL HISTORY: Back pain with radiculopathy. Extremity numbness. COMPARISON STUDY: No previous studies for comparison. TECHNIQUE: Utilizing a 1.5 Karen magnet and dedicated coil, multiplanar, multiecho imaging of the lumbar spine was performed without IV contrast. FINDINGS: For purposes of numbering on this exam, the L5-S1 disc space is assigned to axial image 23 of 25. Alignment of the lumbar spine is anatomic. Vertebral body heights are maintained. There are Schmorl's nodes at several levels. The conus terminates at the lower L1 level. There is no intracanalicular mass or fluid collection. The paravertebral soft tissues are unremarkable. The central canal is congenitally narrow. There is prominent epidural fat within the lower lumbar canal and the sacral canal. L1-2: The central canal and neural foramen are patent. L2-3: There is minimal disc bulge. There is minimal narrowing of the central canal. Neural foramen are patent. L3-4: Central canal and neural foramen are patent. L4-5: Central canal and neural foramen are patent. L5-S1: Central canal and neural foramen are patent. IMPRESSION: 1. Minimal degenerative changes of the lumbar spine. No disc herniation. Slight disc bulge at L2-L3 that results in minimal narrowing of the central canal. No significant central canal stenosis. 2. Congenitally narrow canal with prominent epidural fat within the lower lumbar canal and sacral canal. 3. No fracture. Electronically signed by: Kemal Sheldon M.D. 03/15/2017 4:01 PM Dictated Date/Time: 03/15/2017 3:53 PM
[2017-03-15] MEDS ORDERED: POTASSIUM CHLORIDE 10 MEQ TABCR PO STA (16:08)
[2017-03-15] MEDS ORDERED: IV FLUIDS COMPLETED PRN (16:15)
[2017-03-15] MEDS: OXYCODONE/ACETAMINOPHEN 10/325MG TAB PO PRN (16:19)
[2017-03-15 16:23] LABS: PARTIAL THROMBOPLASTIN RATIO 1.1
[2017-03-15 16:35] VITALS: O2SAT 96; Ht 170.2 cm; Wt 100.0 kg
[2017-03-15 17:28] VITALS: O2SAT 96
[2017-03-15 17:58] VITALS: BP 146/91; PULSE 73; O2SAT 97
[2017-03-15] MEDS: HYDROmorphone INJ 1 MG/ML SYR IV PRN ×2 (18:02→21:17)
[2017-03-15] MEDS ORDERED: LOPERAMIDE HCL 2 MG CAP PO PRN (19:15)
[2017-03-15] MEDS: SUMATRIPTAN SUCCINATE 50 MG TAB PO PRN (19:39)
[2017-03-15] MEDS ORDERED: NON-FORMULARY MEDICATION (Riboflavin (Vitamin B-2) 200 MG) PO SCH (20:00)
[2017-03-15] MEDS: LIDODERM (LIDOCAINE) PATCH 5% TD SCH (21:10)
[2017-03-15] MEDS: HEPARIN SOD 5000 UNIT/0.5 ML CARP SQ SCH (21:15)
[2017-03-15] MEDS ORDERED: LORAZEPAM 2 MG/ML 1 ML VIAL IV PRN (22:00)
[2017-03-15] MEDS: LORAZEPAM INJ 0.5 MG in SYRINGE 0.75 ML IV PRN (22:13)
[2017-03-15 23:25] VITALS: BP 127/90; PULSE 73; TEMP 36.8; O2SAT 99
[2017-03-16] MEDS: HYDROmorphone INJ 1 MG/ML SYR IV PRN ×4 (00:49→10:02)
[2017-03-16] MEDS: LORAZEPAM INJ 0.5 MG in SYRINGE 0.75 ML IV PRN ×4 (02:11→23:11)
[2017-03-16] MEDS: HEPARIN SOD 5000 UNIT/0.5 ML CARP SQ SCH ×3 (05:43→22:11)
[2017-03-16] MEDS: KETOROLAC TROMETHAMINE 30 MG/ML VIAL IV PRN ×2 (05:47→14:53)
[2017-03-16 06:05] LABS: HEMATOCRIT 43.5 % (37-47); MEAN CELL VOLUME 91.2 fL (80-100); MEAN CORPUSCULAR HEMOGLOBIN 29.4 pg (25-34); MEAN CORPUSCULAR HGB CONC 32.2 g/dl (32-36); MEAN PLATELET VOLUME 10.8 fL (7.4-10.4); PLATELET COUNT 240 K/uL (130-400); RED BLOOD COUNT 4.77 M/uL (4.2-5.4); WHITE BLOOD COUNT 8.27 K/uL (4.8-10.8)
[2017-03-16 06:49] LABS: CALCIUM 8.4 mg/dl (8.5-10.1); CREATININE 0.65 mg/dl (0.60-1.20); MAGNESIUM 1.9 mg/dl (1.8-2.4); POTASSIUM 3.6 mmol/L (3.5-5.1)
[2017-03-16 07:38] VITALS: BP 119/77; PULSE 76; TEMP 36.7; O2SAT 98
[2017-03-16] MEDS: LIDODERM (LIDOCAINE) PATCH 5% TD SCH ×2 (08:00→19:32)
[2017-03-16] MEDS: CHOLECALCIFEROL 1000 INTER.UNIT TAB PO SCH (08:22)
[2017-03-16] MEDS: ESCITALOPRAM OXALATE 20 MG TAB PO SCH (08:22)
[2017-03-16] MEDS: MAGNESIUM CHLORIDE 64MG DELAYED REL TAB PO SCH (08:22)
[2017-03-16] MEDS: OXYCODONE/ACETAMINOPHEN 10/325MG TAB PO PRN ×2 (08:22→20:45)
[2017-03-16] MEDS: MONTELUKAST SOD 10 MG TAB PO SCH (08:22)
[2017-03-16] MEDS: SUMATRIPTAN SUCCINATE 50 MG TAB PO PRN (11:16)
--- NOTE | 2017-03-16 11:33 | CONSULTATION REPORT ---
DATE OF CONSULTATION: 03/16/2017 CONSULTATION FOR: Dr. Roman. HISTORY OF PRESENT ILLNESS: Kathy is 32 years old, is known to Dr. Lucio Evans and also is known to Cris Reid PA-C and Cris Ny MD of [facility] neurology. In the past, she saw Dr. Jp Magaña in [place] and then her care was assumed by Dr. Finn who is now retired from practice. She probably had MS for about 12 years. She has been on Avonex one shot a week and over the past 10 years or so she thinks she has had at least 7 courses of IV Solu-Medrol primarily for treatment of paresthesias involving her hands and feet which last more than several days and she bounces back from the treatment generally very well. She has some chronic neck pain and also longstanding lower back pain with a history of bulging discs in the past and has seen pain management primarily for the neck issues, but never for the lower back. She also has chronic migraines and chronic intermittent asthma. In that setting, she has been complaining of increased back pain for 2 days. She was to be seen by pain management, but the pain has increased and she has now been admitted to the hospital because of increasing pain and for evaluation of about 3 hours duration of bilateral arm and leg paresthesias which occurred yesterday morning to the point that she was unable to walk. Most of the walking issue was due to the pain; however, rather than paresthesias. By the time she was seen by Dr. Alvarado, things were improving and she is now back in the early baseline without any paresthesias of her hands and only the lower back pain. PAST MEDICAL HISTORY: Again reveals MS longstanding type which has actually been pretty quiescent and her flareups have primarily been in the sensory sphere. She has a lot of anxiety and depression, chronic neck and back pain, migraine headaches, which are likely fairly quiescent as well and intermittent asthma. PAST SURGICAL HISTORY: Surgically, Dr. White has operated on her neck in 2012. She has had a cholecystectomy, repair of nasal septum and sinus surgery. FAMILY HISTORY: Reveals her mother has asthma. Sister has asthma. There is no other significant family history. SOCIAL HISTORY: Reveals her to be single. She lives with her fiance. She has no children. She does not smoke. She does not drink and she has been reasonably ambulatory. ALLERGIES: SHE HAS ALLERGIES TO HYDROCODONE, AND LORATADINE. CHRONIC MEDICATIONS: Include: Interferon beta 30 mcg IM every week, vitamin D 2000 units two tablets daily, Relpax 40 mg as directed for migraine, Lexapro 20 mg daily, magnesium chloride 264 mg daily, Singulair, Amerge 2.5 mg daily as needed for migraines as well, hydrocodone/acetaminophen 10/325 one tablet every 12 hours as needed for pain, Riboflavin 300 mg twice a day, Imitrex 50 mg as directed. REVIEW OF SYSTEMS: Today reveals no real recent systemic issues. No weight loss, weight gain, fevers, sweats, chills. No new issues with literally head, eyes, ears, nose and throat, cardiovascular, pulmonary, gastrointestinal or genitourinary or musculoskeletal systems. Specifically, she denies any urinary burning or frequency and the back pain has been chronic but is definitely flared up in the last several days. OBJECTIVE: VITAL SIGNS: Examination yesterday revealed temperature of 36.6, pulse 79, blood pressure 140/102. GENERAL: She was moderately over nourished. She was in no acute distress. Her symptoms had largely resolved with exception of the back pain. HEENT: Eye movements were unremarkable. Facial motility and strength was normal. The speech was clear. NECK: Supple. Flexion does not induce Lhermitte's sign. Extension and rotation does not induce any Spurling's sign. LUNGS: Clear. HEART: Had a regular rhythm. No murmurs were appreciated. ABDOMEN: Soft, nontender. EXTREMITIES: Free of edema. 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 NEUROLOGIC: Today neurologically, she is awake, alert, oriented in 3 spheres. There is normal extraocular movements. Fundi are poorly seen. Gross visual acuity is about 20-25. Facial motility and strength, facial sensation, oropharyngeal and lingual movements are normal. She has no tremor, tics, choreiform activity, drift or pronation. Reflexes are 1+ symmetrical. Toes are downgoing. No Adrian's signs are seen. Strength testing is normal and sensory examination is intact to vibration, light touch and temperature. Currently, it is hard to call this a flare of MS with a 3 hour episode of generalized paresthesias. Her MS by history has been fairly stable on her Avonex therapy for years. She claims she has not had any imaging of her brain or cervical cord for about 3-4 years. So despite the fact, I do not think this is a flare of her MS, we might as well get some imaging studies of her brain with and without contrast, and of her cervical spine, with and without contrast just to stage her at this point. A noncontrast MRI of the lumbar spine is really pretty unremarkable today. We will see what pain management has to say. I certainly would not treat her with steroids at this time unless of course we see evidence for disease activity on imaging of the brain and spinal cord. I will check with him tomorrow. BRIDGET
[2017-03-16] MEDS ORDERED: MoRPHine SULFATE 2 MG/ML CARP ONE (13:13)
[2017-03-16] MEDS ORDERED: ONDANSETRON INJ 2 MG/ML 2 ML VIAL ONE (13:21)
[2017-03-16] MEDS ORDERED: LORAZEPAM INJ 0.5 MG in SYRINGE 0.75 ML IV ONE (13:30)
[2017-03-16] MEDS ORDERED: NURSING VERBAL MED ORDER ONE ×3 (13:30→15:45)
--- NOTE | 2017-03-16 14:05 | Progress Note ---
Medicine Progress Note Date & Time of Visit: Mar 16, 2017 at 13:42. Subjective Pt was seen and examined Lying in bed comfortable with no distress with at bedside Pt said that she continues to have pain in her back She said that the Dilaudid seems not to last longer She does not any numbness currently in the lower extremities Denies any chest pain, palpitation, dizziness, vision change, SOB, bowel and bladder loss Objective Last 8 Hrs Date Time Temp Pulse Resp B/P (MAP) Pulse Ox O2 Delivery O2 Flow Rate FiO2 03/16/17 08:00 Room Air 03/16/17 07:38 36.7 76 16 119/77 (91) 98 Room Air Physical Exam: General- No acute distress Head- atraumatic Eyes- PERRL, EOMI ENT- oropharynx clear Neck- supple, no JVD Lungs- clear to auscultation, No wheezing Heart- regular rhythm; no murmur Abdomen- normal bowel sounds, soft, nontender Extremities- no pretibial edema, no calf tenderness Neuro- alert, oriented x 3; PERRL, EOMI; no facial palsy; no dysarthria; motor 5 /5 bilaterally Skin- warm & dry Laboratory Results: Last 24 Hours Test 03/16/17 05:41 White Blood Count 8.27 K/uL Red Blood Count 4.77 M/uL Hemoglobin 14.0 g/dL Hematocrit 43.5 % Mean Corpuscular Volume 91.2 fL Mean Corpuscular Hemoglobin 29.4 pg Mean Corpuscular Hemoglobin Concent 32.2 g/dl RDW Standard Deviation 45.1 fL RDW Coefficient of Variation 13.5 % Platelet Count 240 K/uL Mean Platelet Volume 10.8 fL Sodium Level 143 mmol/L Potassium Level 3.6 mmol/L Chloride Level 110 mmol/L Carbon Dioxide Level 26 mmol/L Anion Gap 7.0 mmol/L Blood Urea Nitrogen 14 mg/dl Creatinine 0.65 mg/dl Est Creatinine Clear Calc Drug Dose 148.2 ml/min Estimated GFR () 134.3 Estimated GFR (Non- 115.8 BUN/Creatinine Ratio 22.0 Random Glucose 80 mg/dl Calcium Level 8.4 mg/dl Magnesium Level 1.9 mg/dl Assessment & Plan Chronic Low back pain Has been worsening in the last few days MRI showed minimal degenerative changes of the lumbar spine Slight disc bulge at L2-L3 that results in minimal narrowing of the central canal. Congenitally narrow canal with prominent epidural fat within the lower lumbar canal and sacral canal. On Dilaudid pt said that does not last She would rather have the dilaudid to change with morphine Ok to give zofran before administering morphine Continue oxycodone Pain management consulted PT/OT eval Hx Neck Pain Stable MRI of the neck order by neuro Multiple Sclerosis. Doesn't seems to be a flare up. Neuro on board MRI of the head pending Continue current management Anxiety/depression. Continue with Lexapro. stable Hx asthma Continue outpatient med stable DVT px on subQ heparin. CODE STATUS FULL CODE Consultants: Neurology Pain Management Current Inpatient Medications: Current Inpatient Medications Medications (Trade) Dose Ordered Sig/Sunny Route Start Time Stop Time Status Last Admin Dose Admin Heparin Sodium (Porcine) (Heparin Sq 5000 Unit/0.5ml) 5,000 unit Q8H SQ 03/15/17 22:00 04/14/17 21:59 03/16/17 13:31 5,000 UNIT Escitalopram Oxalate (Lexapro Tab) 20 mg DAILY PO 03/16/17 08:00 04/15/17 08:59 03/16/17 08:22 20 MG Magnesium Chloride (Slow-Mag Tab) 64 mg DAILY PO 03/16/17 08:00 04/15/17 08:59 03/16/17 08:22 64 MG Montelukast Sodium (Singulair Tab) 10 mg DAILY PO 03/16/17 08:00 04/15/17 08:59 03/16/17 08:22 10 MG Oxycodone/ Acetaminophen (Percocet 10-325MG Tab) 1 tab Q12 PRN PO 03/15/17 15:00 03/29/17 14:59 03/16/17 08:22 1 TAB Sumatriptan Succinate (Imitrex Tab) 50 mg UD PRN PO 03/15/17 15:00 04/14/17 14:59 03/16/17 11:16 50 MG Cholecalciferol (Vitamin D Tab) 4,000 inter.unit DAILY PO 03/16/17 08:00 04/15/17 08:59 03/16/17 08:22 4,000 INTER.UNIT Sumatriptan Succinate (Imitrex Sq Inj) 6 mg UD PRN SQ 03/15/17 15:30 04/14/17 15:29 Miscellaneous Information (Order Awaiting Action) 1 ea QS N/A 03/15/17 16:00 04/14/17 15:59 Miscellaneous Information (Order Awaiting Action) 1 ea QS N/A 03/15/17 16:00 04/14/17 15:59 Miscellaneous Information (Order Awaiting Action) 1 ea QS N/A 03/15/17 16:00 04/14/17 15:59 Miscellaneous (Iv Fluids Completed) 1 ea PRN PRN N/A 03/15/17 16:15 03/15/18 16:14 Hydromorphone HCl (Dilaudid Inj) 0.5 mg Q3H PRN IV 03/15/17 17:30 03/29/17 17:29 03/16/17 10:02 0.5 MG Loperamide HCl (Imodium Cap) 2 mg Q8H PRN PO 03/15/17 19:15 04/14/17 19:14 03/15/17 19:34 2 MG Lidocaine (Lidoderm Patch 5%) 1 patch QAM TD 03/16/17 08:00 04/15/17 07:59 03/15/17 21:10 1 PATCH Miscellaneous (Remove Lidoderm Patch) 1 ea DAILY@1999 N/A 03/16/17 20:00 04/15/17 19:59 Ketorolac Tromethamine (Toradol Inj) 30 mg Q6H PRN IV 03/15/17 22:00 03/20/17 21:59 03/16/17 05:47 30 MG Lorazepam (Ativan Inj) 0.5 mg Q4H PRN IV 03/15/17 22:00 04/14/17 21:59 Lorazepam 0.5 mg/ Syringe 1 ml @ 1 mls/min Q4H PRN IV 03/15/17 22:15 04/14/17 22:14 03/16/17 13:15 1 MLS/MIN Ondansetron HCl (Zofran Inj) 4 mg Q4 PRN IV 03/16/17 16:00 04/14/17 14:59 Morphine Sulfate (MoRPHine SULFATE INJ) 2 mg Q4 PRN IV 03/16/17 13:00 03/30/17 12:59
[2017-03-16 16:11] VITALS: BP 136/86; PULSE 61; TEMP 36.7; O2SAT 100
[2017-03-16] MEDS: ONDANSETRON INJ 2 MG/ML 2 ML VIAL IV PRN ×2 (17:04→23:15)
[2017-03-16] MEDS: MoRPHine SULFATE 2 MG/ML CARP IV PRN ×2 (17:06→23:12)
[2017-03-17 00:05] VITALS: BP 130/97; PULSE 66; TEMP 36.9; O2SAT 97
[2017-03-17] MEDS: KETOROLAC TROMETHAMINE 30 MG/ML VIAL IV PRN ×2 (04:51→11:23)
[2017-03-17] MEDS ORDERED: LORAZEPAM INJ 1 MG in SYRINGE 0.5 ML IV SCH (05:00)
[2017-03-17] MEDS: HEPARIN SOD 5000 UNIT/0.5 ML CARP SQ SCH ×3 (06:11→21:11)
[2017-03-17] MEDS: ONDANSETRON INJ 2 MG/ML 2 ML VIAL IV PRN ×4 (06:40→20:06)
[2017-03-17] MEDS: MoRPHine SULFATE 2 MG/ML CARP IV PRN ×2 (06:43→10:45)
[2017-03-17 07:08] VITALS: BP 126/87; PULSE 75; TEMP 36.7; O2SAT 98
[2017-03-17] MEDS: MAGNESIUM CHLORIDE 64MG DELAYED REL TAB PO SCH (08:01)
[2017-03-17] MEDS: ESCITALOPRAM OXALATE 20 MG TAB PO SCH (08:01)
[2017-03-17] MEDS: CHOLECALCIFEROL 1000 INTER.UNIT TAB PO SCH (08:02)
[2017-03-17] MEDS: MONTELUKAST SOD 10 MG TAB PO SCH (08:02)
[2017-03-17] MEDS: OXYCODONE/ACETAMINOPHEN 10/325MG TAB PO PRN (08:05)
[2017-03-17] MEDS: LORAZEPAM INJ 0.5 MG in SYRINGE 0.75 ML IV PRN (09:24)
--- NOTE | 2017-03-17 12:21 | PROGRESS NOTE ---
DATE: 03/17/2017 SUBJECTIVE: Kathy is having increasing amounts of back pain and is requiring a lot of morphine. The unenhanced MRI really did not show much in the way of structural issues. We did attempt to get an MRI of her cervical spine and brain is staging for her known MS since she was in the hospital for the back pain and had had some drainage and paresthesias of both arms. Unfortunately, the pain was so severe that she could not lie still and complete the MRI study of the cervical spine and did not receive contrast enhancement. We will make one more attempt today to get her down after premedication with analgesia and some Ativan, but if she really cannot tolerate the testing, I see no point in pushing it and we can do this on an outpatient basis. OBJECTIVE: Currently, her exam is absolutely nonfocal in terms of anything that would be due to her MS. Her cranial nerves are intact. Speech is clear. She moves all extremities well. She has no tremor, tics, or choreiform activity and sensory examination is normal and there is no Lhermitte sign. IMPRESSION AND PLAN: We will see how things go and I will take a look at him tomorrow. Hopefully, pain management will be seeing her will make some suggestions, but at this point I do not think neurology has much to offer and I certainly have no justification with this kind of history to put her on some IV Solu-Medrol on a tapering course as exacerbation of her chronic back pain will be a very atypical presentation of an MS flare, particularly the nature of her, particular pain which seems to be localized in the back and nonradicular. BRIDGET
--- NOTE | 2017-03-17 12:52 | DIAGNOSTIC IMAGING REPORT ---
MRI OF THE BRAIN WITHOUT AND WITH IV CONTRAST CLINICAL HISTORY: Multiple sclerosis COMPARISON STUDY: 06/26/2015 TECHNIQUE: MRI of the brain was performed from the vertex to the skull base utilizing various T1 and T2 weighted sequences. Following the IV administration of 10 mL of Gadavist contrast, additional enhanced images were obtained. FINDINGS: Sagittal T1, axial diffusion, proton density and T2 weighted axial, coronal FLAIR, and pre and post axial T1-weighted images were acquired. These were supplemented with post gadolinium coronal T1 weighted images. No intra or extra-axial mass lesions are visualized. Axial diffusion-weighted images reveal no evidence of acute or subacute infarction. There is no evidence of ventricular dilatation. Proton density T2-weighted and FLAIR images reveal essentially stable foci of increased T2 signal within the white matter. The findings are consistent with the clinical history of multiple sclerosis. There is a 9 mm focus within the left frontal white matter. There is an 8 mm focus within the left centrum semiovale. There is a 10 mm 6 mm focus within the left parietal white matter. There is a 13 mm focus adjacent the anterior horn of the right lateral ventricle. There is a 10 mm focus in the left occipital white matter. There is a 12 mm focus within the right temporal white matter. There are no abnormal flow voids. There is no evidence of pathologic enhancement. IMPRESSION: 1. Multiple foci of abnormal increased T2 signal within the white matter, consistent with the clinical history of multiple sclerosis. These remain essentially stable. There is no pathologic enhancement to indicate an active plaque. Electronically signed by: Christopher Herrera M.D. 03/17/2017 12:50 PM Dictated Date/Time: 03/17/2017 12:45 PM
--- NOTE | 2017-03-17 13:00 | DIAGNOSTIC IMAGING REPORT ---
MRI CERVICAL SPINE COMBO CLINICAL HISTORY: Multiple sclerosis. Possible flare. TECHNIQUE: Sagittal and axial T1, T2 and STIR images were obtained. Images were acquired before and after administration of 10 cc of intravenous Gadavist COMPARISON STUDY: No previous studies for comparison. There are no suspicious areas of marrow replacement. No intrinsic cervical cord lesions are visualized. C2-3: There is no significant disc bulge or focal herniation. There is no spinal or foraminal stenosis C3-4: There is a mild circumferential disc bulge. There is no significant spinal foraminal stenosis C4-5: There is a circumferential disc bulge with mild spinal canal narrowing. There is no significant foraminal narrowing C5-6 :There are postsurgical changes of a discectomy and anterior fusion. There is no recurrent disc herniation. There is no spinal stenosis. There is minor left-sided foraminal narrowing C6-7: There is a mild circumferential disc bulge. There is no significant spinal or foraminal stenosis C7-T1: There is no evidence of disc bulge or focal herniation. There is no evidence of spinal or foraminal stenosis. There is no pathologic enhancement. IMPRESSION: 1. Postsurgical changes the C5-6 level 2. Disc bulges at the C3-4, C4-5, and C6-7 levels. Minor spinal canal narrowing at the C 4-5 level. 3. No cord lesions identified. No evidence of pathologic enhancement. Electronically signed by: Christopher Herrera M.D. 03/17/2017 12:58 PM Dictated Date/Time: 03/17/2017 12:52 PM
[2017-03-17] MEDS: MoRPHine SULFATE 4 MG/ML 1 ML CARP\\VIAL IV PRN ×2 (15:27→20:06)
[2017-03-17 16:03] VITALS: BP 123/81; PULSE 66; TEMP 36.8; O2SAT 96
--- NOTE | 2017-03-17 18:27 | Progress Note ---
Medicine Progress Note Date & Time of Visit: Mar 17, 2017 at 18:15. Subjective Pt was seen and examined Sitting in bed with no distress Pt said that he continue to have the back pain She said that the morphine is the only thing that seems to help with the back pain she denies any numbness, chest pain, palpitation, bladder and flako loss Objective Last 8 Hrs Date Time Temp Pulse Resp B/P (MAP) Pulse Ox O2 Delivery O2 Flow Rate FiO2 03/17/17 16:03 36.8 66 16 123/81 (95) 96 Room Air Physical Exam: General- No acute distress Head- atraumatic Eyes- PERRL, EOMI ENT- oropharynx clear Neck- supple, no JVD Lungs- clear to auscultation, No wheezing Heart- regular rhythm; no murmur Abdomen- normal bowel sounds, soft, nontender Extremities- no pretibial edema, no calf tenderness Neuro- alert, oriented x 3; PERRL, EOMI; no facial palsy; no dysarthria; motor 5 /5 bilaterally Skin- warm & dry Assessment & Plan Chronic Low back pain Has been worsening in the last few days MRI showed minimal degenerative changes of the lumbar spine Slight disc bulge at L2-L3 that results in minimal narrowing of the central canal. Congenitally narrow canal with prominent epidural fat within the lower lumbar canal and sacral canal. On Dilaudid, but she said the Dilaudid does not help She would rather have the Dilaudid to change to morphine Ok to give zofran before administering morphine d/c oxycodone refused the Lidoderm patch because it does not help, will d/c it Increase morphine to 4 mg q4h prn Pt would like to discuss with pain management about nerve block since it worked for her neck pain. Pain management consult pending PT/OT eval Hx Neck Pain Stable MRI of the neck showed: 1. Postsurgical changes the C5-6 level 2. Disc bulges at the C3-4, C4-5, and C6-7 levels. Minor spinal canal narrowing at the C 4-5 level. 3. No cord lesions identified. No evidence of pathologic enhancement. Multiple Sclerosis. Doesn't seem to be a flare up. Neuro on board Continue current management MRI of the Head: 1-Multiple foci of abnormal increased T2 signal within the white matter. Stable Anxiety/depression. Continue with Lexapro. stable Hx asthma Continue outpatient med stable DVT px on subQ heparin. CODE STATUS FULL CODE DISPOSITION Discharge home once medically stable Consultants: Neurology Pain Management Current Inpatient Medications: Current Inpatient Medications Medications (Trade) Dose Ordered Sig/Sunny Route Start Time Stop Time Status Last Admin Dose Admin Heparin Sodium (Porcine) (Heparin Sq 5000 Unit/0.5ml) 5,000 unit Q8H SQ 03/15/17 22:00 04/14/17 21:59 03/17/17 14:51 5,000 UNIT Escitalopram Oxalate (Lexapro Tab) 20 mg DAILY PO 03/16/17 08:00 04/15/17 08:59 03/17/17 08:01 20 MG Magnesium Chloride (Slow-Mag Tab) 64 mg DAILY PO 03/16/17 08:00 04/15/17 08:59 03/17/17 08:01 64 MG Montelukast Sodium (Singulair Tab) 10 mg DAILY PO 03/16/17 08:00 04/15/17 08:59 03/17/17 08:02 10 MG Oxycodone/ Acetaminophen (Percocet 10-325MG Tab) 1 tab Q12 PRN PO 03/15/17 15:00 03/29/17 14:59 03/17/17 08:05 1 TAB Sumatriptan Succinate (Imitrex Tab) 50 mg UD PRN PO 03/15/17 15:00 04/14/17 14:59 03/16/17 11:16 50 MG Cholecalciferol (Vitamin D Tab) 4,000 inter.unit DAILY PO 03/16/17 08:00 04/15/17 08:59 03/17/17 08:02 4,000 INTER.UNIT Sumatriptan Succinate (Imitrex Sq Inj) 6 mg UD PRN SQ 03/15/17 15:30 04/14/17 15:29 Miscellaneous Information (Order Awaiting Action) 1 ea QS N/A 03/15/17 16:00 04/14/17 15:59 Miscellaneous Information (Order Awaiting Action) 1 ea QS N/A 03/15/17 16:00 04/14/17 15:59 Miscellaneous Information (Order Awaiting Action) 1 ea QS N/A 03/15/17 16:00 04/14/17 15:59 Miscellaneous (Iv Fluids Completed) 1 ea PRN PRN N/A 03/15/17 16:15 03/15/18 16:14 Loperamide HCl (Imodium Cap) 2 mg Q8H PRN PO 03/15/17 19:15 04/14/17 19:14 03/15/17 19:34 2 MG Ketorolac Tromethamine (Toradol Inj) 30 mg Q6H PRN IV 03/15/17 22:00 03/20/17 21:59 03/17/17 11:23 30 MG Lorazepam (Ativan Inj) 0.5 mg Q4H PRN IV 03/15/17 22:00 04/14/17 21:59 Lorazepam 0.5 mg/ Syringe 1 ml @ 1 mls/min Q4H PRN IV 03/15/17 22:15 04/14/17 22:14 03/17/17 09:24 1 MLS/MIN Ondansetron HCl (Zofran Inj) 4 mg Q4 PRN IV 03/16/17 16:00 04/14/17 14:59 03/17/17 15:30 4 MG Lidocaine (Lidoderm Patch 5%) 1 patch HS TD 03/16/17 21:00 04/15/17 20:59 03/16/17 19:32 1 PATCH Miscellaneous (Remove Lidoderm Patch) 1 ea DAILY@0900 N/A 03/17/17 09:00 04/16/17 08:59 03/17/17 08:03 1 EA Morphine Sulfate (MoRPHine SULFATE INJ) 3 mg Q4 PRN IV 03/17/17 14:00 03/30/17 12:59 03/17/17 15:27 3 MG
[2017-03-17] MEDS ORDERED: DOCUSATE SODIUM/SENNA 50/8.6MG TAB PO ONE (18:30)
[2017-03-17] MEDS ORDERED: DOCUSATE SODIUM/SENNA 50/8.6MG TAB PO PRN (18:30)
[2017-03-17] MEDS: LIDODERM (LIDOCAINE) PATCH 5% TD SCH (21:00)
[2017-03-17 23:53] VITALS: BP 130/83; PULSE 70; TEMP 37; O2SAT 97
[2017-03-18] MEDS: ONDANSETRON INJ 2 MG/ML 2 ML VIAL IV PRN ×4 (00:21→13:19)
[2017-03-18] MEDS: MoRPHine SULFATE 4 MG/ML 1 ML CARP\\VIAL IV PRN ×4 (00:23→13:19)
[2017-03-18] MEDS: LORAZEPAM INJ 0.5 MG in SYRINGE 0.75 ML IV PRN ×3 (00:23→10:58)
[2017-03-18] MEDS: HEPARIN SOD 5000 UNIT/0.5 ML CARP SQ SCH ×2 (06:38→13:25)
[2017-03-18 07:29] VITALS: BP 117/77; PULSE 62; TEMP 36.6; O2SAT 96
[2017-03-18] MEDS: MAGNESIUM CHLORIDE 64MG DELAYED REL TAB PO SCH (09:21)
[2017-03-18] MEDS: ESCITALOPRAM OXALATE 20 MG TAB PO SCH (09:21)
[2017-03-18] MEDS: CHOLECALCIFEROL 1000 INTER.UNIT TAB PO SCH (09:22)
[2017-03-18] MEDS: MONTELUKAST SOD 10 MG TAB PO SCH (09:22)
--- NOTE | 2017-03-18 14:15 | Progress Note ---
Medicine Progress Note Date & Time of Visit: Mar 18, 2017 at 14:06. Subjective Pt was seen and examined Sitting at the edge of the bed texting on her cell with no distress Pt said that she continue to have back she saw the pain management doctor denies any chest pain, palpitation, bowel and blader loss, dizziness and sob Objective Last 8 Hrs Date Time Temp Pulse Resp B/P (MAP) Pulse Ox O2 Delivery O2 Flow Rate FiO2 03/18/17 09:15 Room Air 03/18/17 07:29 36.6 62 18 117/77 (90) 96 Room Air Physical Exam: General- No acute distress Head- atraumatic Eyes- PERRL, EOMI ENT- oropharynx clear Neck- supple, no JVD Lungs- clear to auscultation, No wheezing Heart- regular rhythm; no murmur Abdomen- normal bowel sounds, soft, nontender Extremities- no pretibial edema, no calf tenderness Neuro- alert, oriented x 3; PERRL, EOMI; no facial palsy; no dysarthria; motor 5 /5 bilaterally Skin- warm & dry Laboratory Results: Date/Time Source Procedure Growth Status 03/18/17 12:05 Stool C.difficile Toxin B Gene (PCR) - Final Complete 03/18/17 12:05 Stool Shiga Toxin Test Pending Received 03/18/17 12:05 Stool Stool Culture Pending Received Assessment & Plan Chronic Low back pain Has been worsening in the last few days MRI showed minimal degenerative changes of the lumbar spine Slight disc bulge at L2-L3 that results in minimal narrowing of the central canal. Congenitally narrow canal with prominent epidural fat within the lower lumbar canal and sacral canal. On Dilaudid, but she said the Dilaudid does not help She would rather have the Dilaudid to change to morphine Ok to give zofran before administering morphine d/c oxycodone refused the Lidoderm patch because it does not help, will d/c it Increase morphine to 4 mg q4h prn Pt would like to discuss with pain management about nerve block since it worked for her neck pain. Case discussed with Dr. Ocampo that recommended muscle relaxant since MRI did not show and significant changes that requires injection No further therapy as per pain management Pt refused muscle relaxant. she is interested on a patch like fentanyl patch Continue heat and ice/ physical therapy bas needed Hx Neck Pain Stable MRI of the neck showed: 1. Postsurgical changes the C5-6 level 2. Disc bulges at the C3-4, C4-5, and C6-7 levels. Minor spinal canal narrowing at the C 4-5 level. 3. No cord lesions identified. No evidence of pathologic enhancement. Multiple Sclerosis. Doesn't seem to be a flare up. Neuro on board Continue current management MRI of the Head: 1-Multiple foci of abnormal increased T2 signal within the white matter. Stable Anxiety/depression. Continue with Lexapro. stable Hx asthma Continue outpatient med stable DVT px on subQ heparin. CODE STATUS FULL CODE DISPOSITION Discharge home today Follow up with your PCP Dr. Evans on 03/22 at 1:05 pm Consultants: Neurology Pain Management Current Inpatient Medications: Current Inpatient Medications Medications (Trade) Dose Ordered Sig/Sunny Route Start Time Stop Time Status Last Admin Dose Admin Heparin Sodium (Porcine) (Heparin Sq 5000 Unit/0.5ml) 5,000 unit Q8H SQ 03/15/17 22:00 04/14/17 21:59 03/18/17 13:25 5,000 UNIT Escitalopram Oxalate (Lexapro Tab) 20 mg DAILY PO 03/16/17 08:00 04/15/17 08:59 03/18/17 09:21 20 MG Magnesium Chloride (Slow-Mag Tab) 64 mg DAILY PO 03/16/17 08:00 04/15/17 08:59 03/18/17 09:21 64 MG Montelukast Sodium (Singulair Tab) 10 mg DAILY PO 03/16/17 08:00 04/15/17 08:59 03/18/17 09:22 10 MG Sumatriptan Succinate (Imitrex Tab) 50 mg UD PRN PO 03/15/17 15:00 04/14/17 14:59 03/16/17 11:16 50 MG Cholecalciferol (Vitamin D Tab) 4,000 inter.unit DAILY PO 03/16/17 08:00 04/15/17 08:59 03/18/17 09:22 4,000 INTER.UNIT Sumatriptan Succinate (Imitrex Sq Inj) 6 mg UD PRN SQ 03/15/17 15:30 04/14/17 15:29 Miscellaneous Information (Order Awaiting Action) 1 ea QS N/A 03/15/17 16:00 04/14/17 15:59 Miscellaneous Information (Order Awaiting Action) 1 ea QS N/A 03/15/17 16:00 04/14/17 15:59 Miscellaneous Information (Order Awaiting Action) 1 ea QS N/A 03/15/17 16:00 04/14/17 15:59 Miscellaneous (Iv Fluids Completed) 1 ea PRN PRN N/A 03/15/17 16:15 03/15/18 16:14 Lorazepam (Ativan Inj) 0.5 mg Q4H PRN IV 03/15/17 22:00 04/14/17 21:59 Lorazepam 0.5 mg/ Syringe 1 ml @ 1 mls/min Q4H PRN IV 03/15/17 22:15 04/14/17 22:14 03/18/17 10:58 1 MLS/MIN Ondansetron HCl (Zofran Inj) 4 mg Q4 PRN IV 03/16/17 16:00 04/14/17 14:59 03/18/17 13:19 4 MG Lidocaine (Lidoderm Patch 5%) 1 patch HS TD 03/16/17 21:00 04/15/17 20:59 03/16/17 19:32 1 PATCH Miscellaneous (Remove Lidoderm Patch) 1 ea DAILY@0900 N/A 03/17/17 09:00 04/16/17 08:59 03/17/17 08:03 1 EA Morphine Sulfate (MoRPHine SULFATE INJ) 3 mg Q4 PRN IV 03/17/17 14:00 03/30/17 12:59 03/18/17 13:19 3 MG Senna/Docusate Sodium (Senokot S Tab) 1 tab QAM PRN PO 03/17/17 18:30 04/16/17 18:29
--- NOTE | 2017-03-18 14:25 | Discharge Instructions ---
Discharge Instructions Date of Service Mar 18, 2017. Admission Reason for Admission: Intractable Low Back Pain Discharge Discharge Diagnosis / Problem: Chronic Low back pain, Multiple Sclerosis, Anxiety/Depression Discharge Goals Goal(s): Decrease discomfort, Improve function, Increase independence, Improve disease control Activity Recommendations Activity Limitations: resume your previous activity (Gradually as tolerated) . Instructions / Follow-Up Instructions / Follow-Up Follow up with your primary care provider Dr. Evans on 03/22 @ 1:05 pm Fall precaution Physical therapy as needed Script written for a cane Current Hospital Diet Patient's current hospital diet: Regular Diet Discharge Diet Recommended Diet: Regular Diet Pending Studies Studies pending at discharge: no Medical Emergencies . Who to Call and When: Medical Emergencies: If at any time you feel your situation is an emergency, please call 911 immediately. . Non-Emergent Contact Non-Emergency issues call your: Primary Care Provider Call Non-Emergent contact if: your pain is not controlled, your pain is worsening, you have any medication questions . . "Provider Documentation" section prepared by Kiesha Roman. . VTE Core Measure Inpt VTE Proph given/why not?: Unfractionated heparin SQ [place] Drug Monitoring Program Search Results: patient reviewed within database (last oxycodone script was on 03/11/17 for 30days)
--- NOTE | 2017-03-18 14:26 | Pain Management Consultation ---
Pain Management Consultation Date of Consultation Mar 18, 2017. Reason for Consultation Lumbago History 32-year-old female with a history of low back pain for the last 4-5 days and is 100% axial nonradicular. States the pain is sharp and knifelike not relieved with Dilaudid or IV morphine. She is previously had cervicalgia with a cervical radiofrequency ablation of her cervical medial branches with dramatic improvement in her pain and wonders if this may be a possibility for her lumbar spine. She notes the pain is between 9 and 10 out of 10 at worst with activity better with rest and medications. She has not completed physical therapy and denies any known trauma or etiology of her pain. She denies bowel or bladder incontinence but weakness which upper falls at this time. She's tried heat with limited benefit. She was seen by neurology this admission and who feels that this would be an atypical MS exacerbation presentation. 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 (12) (13) Shoulder pain, right (14) Spontaneous (15) Threatened miscarriage (16) Vaginal bleeding Family History FH: lung disease FHx: cancer Stroke Family Hx Review: history personally reviewed by me Social / Work History Marital Status: in relationship Occupation: disabled Allergies Coded Allergies: Loratadine (Verified Allergy, Severe, "TONGUE SWELLS", 03/15/17) Hydrocodone (Verified Adverse Reaction, Intermediate, "GETS MIGRAINES WHEN IT WEARS OFF", 03/15/17) Medications Current Inpatient Medications Medications (Trade) Dose Ordered Sig/Sunny Route Start Time Stop Time Status Last Admin Dose Admin Heparin Sodium (Porcine) (Heparin Sq 5000 Unit/0.5ml) 5,000 unit Q8H SQ 03/15/17 22:00 04/14/17 21:59 03/18/17 13:25 5,000 UNIT Escitalopram Oxalate (Lexapro Tab) 20 mg DAILY PO 03/16/17 08:00 04/15/17 08:59 03/18/17 09:21 20 MG Magnesium Chloride (Slow-Mag Tab) 64 mg DAILY PO 03/16/17 08:00 04/15/17 08:59 03/18/17 09:21 64 MG Montelukast Sodium (Singulair Tab) 10 mg DAILY PO 03/16/17 08:00 04/15/17 08:59 03/18/17 09:22 10 MG Sumatriptan Succinate (Imitrex Tab) 50 mg UD PRN PO 03/15/17 15:00 04/14/17 14:59 03/16/17 11:16 50 MG Cholecalciferol (Vitamin D Tab) 4,000 inter.unit DAILY PO 03/16/17 08:00 04/15/17 08:59 03/18/17 09:22 4,000 INTER.UNIT Sumatriptan Succinate (Imitrex Sq Inj) 6 mg UD PRN SQ 03/15/17 15:30 04/14/17 15:29 Miscellaneous Information (Order Awaiting Action) 1 ea QS N/A 03/15/17 16:00 04/14/17 15:59 Miscellaneous Information (Order Awaiting Action) 1 ea QS N/A 03/15/17 16:00 04/14/17 15:59 Miscellaneous Information (Order Awaiting Action) 1 ea QS N/A 03/15/17 16:00 04/14/17 15:59 Miscellaneous (Iv Fluids Completed) 1 ea PRN PRN N/A 03/15/17 16:15 03/15/18 16:14 Lorazepam (Ativan Inj) 0.5 mg Q4H PRN IV 03/15/17 22:00 04/14/17 21:59 Lorazepam 0.5 mg/ Syringe 1 ml @ 1 mls/min Q4H PRN IV 03/15/17 22:15 04/14/17 22:14 03/18/17 10:58 1 MLS/MIN Ondansetron HCl (Zofran Inj) 4 mg Q4 PRN IV 03/16/17 16:00 04/14/17 14:59 03/18/17 13:19 4 MG Lidocaine (Lidoderm Patch 5%) 1 patch HS TD 03/16/17 21:00 04/15/17 20:59 03/16/17 19:32 1 PATCH Miscellaneous (Remove Lidoderm Patch) 1 ea DAILY@0900 N/A 03/17/17 09:00 04/16/17 08:59 03/17/17 08:03 1 EA Morphine Sulfate (MoRPHine SULFATE INJ) 3 mg Q4 PRN IV 03/17/17 14:00 03/30/17 12:59 03/18/17 13:19 3 MG Senna/Docusate Sodium (Senokot S Tab) 1 tab QAM PRN PO 03/17/17 18:30 04/16/17 18:29 Review of Systems 10 point review of systems was otherwise negative aside from HPI Physical Exam Height & Weight: Height 5 feet, 7.00 inches. Weight 100.000 (Kilograms) 220 (Pounds) Last Vital Signs Documentation Date Time Temp Pulse Resp B/P (MAP) Pulse Ox O2 Delivery O2 Flow Rate FiO2 03/18/17 09:15 Room Air 03/18/17 07:29 36.6 62 18 117/77 (90) 96 Exam: Awake alert noted 3 appearing in no acute distress lying in her bed Pupils are equally round and reactive to light CV regular rate and rhythm Lungs notable wheezes rhonchi Skin warm and dry to touch with no skin tears breakdown Spine she has preservation of lumbar lordosis she has mild tenderness over the axial lumbar midline from L3 through S1 there is no appreciable spasm she has no significant tenderness to parts facet provocation She is nontender over bilateral SI joints or greater trochanters she has 5 strength bilateral lower extremities equal throughout with 2+ DTRs of bilateral L4 and S1 ankle clonus negative straight leg raise bilaterally gait was not observed cranial nerves are grossly intact Laboratory Laboratory Results (Last CBC): 03/16/17 05:41 Imaging MRI Findings Patient: CARLOS MILLER Address1: [address] [place] [address] Rec: [id number] Address2: Acct ID: [id number] [facility] Zip: [place] [address] Date: 1985 Sex: F Room/Bed: Ref Phy: Lucio Evans D.OSaida SC: ALEX Att Phy: Report #: [id number] [place] Phy: Lucio Evans D.OSaida Test: LSWOC Admit Phy: Production Or Plant Engineer: AMALIA Interpreting Phy: Kemal Sheldon MD Diagnosis: BACK PAIN, ARMS AND LEGS ARE NUMB Ordering Phy: Jennifer Alvarado M.D. Service Date: 03/15/17 Admit Date: 03/15/17 MNE: [id number] CONF: DICTATED BY: Kemal Sheldon MD]] CC: Jennifer Alvarado M.D. Newcomb, Brian D., M.D. Lucio Evans D.OSaida Endcc: [~ rep ct add3]] MRI OF THE LUMBAR SPINE WITHOUT CONTRAST CLINICAL HISTORY: Back pain with radiculopathy. Extremity numbness. COMPARISON STUDY: No previous studies for comparison. TECHNIQUE: Utilizing a 1.5 Karen magnet and dedicated coil, multiplanar, multiecho imaging of the lumbar spine was performed without IV contrast. FINDINGS: For purposes of numbering on this exam, the L5-S1 disc space is assigned to axial image 23 of 25. Alignment of the lumbar spine is anatomic. Vertebral body heights are maintained. There are Schmorl's nodes at several levels. The conus terminates at the lower L1 level. There is no intracanalicular mass or fluid collection. The paravertebral soft tissues are unremarkable. The central canal is congenitally narrow. There is prominent epidural fat within the lower lumbar canal and the sacral canal. L1-2: The central canal and neural foramen are patent. L2-3: There is minimal disc bulge. There is minimal narrowing of the central canal. Neural foramen are patent. L3-4: Central canal and neural foramen are patent. L4-5: Central canal and neural foramen are patent. L5-S1: Central canal and neural foramen are patent. IMPRESSION: 1. Minimal degenerative changes of the lumbar spine. No disc herniation. Slight disc bulge at L2-L3 that results in minimal narrowing of the central canal. No significant central canal stenosis. 2. Congenitally narrow canal with prominent epidural fat within the lower lumbar canal and sacral canal. 3. No fracture. Assessment 1. Lumbago 2. Multiple sclerosis Recommendations 1. There is no role for interventional pain therapy at this point as she does not have significant anatomy to the extent of her reported pain rated 2. Continue heat and ice/ physical therapy. 3. Would not recommend long-term utilization of narcotics 4. Multiple sclerosis treatment as per neurology 5. He for this consult will sign off at this point as we have nothing to offer this patient [email or web address] Voice Recognition This chart was completed in part utilizing Dragon Dictation Voice Recognition Software. Random word insertions, pronoun errors, and incomplete sentences are an occasional consequence of this system due to software limitations and ambient noise. Any questions or concerns about the content, text or information contained within the body of this dictation should be directly addressed to the provider for clarification.
[2017-03-18 14:39] VITALS: BP 117/77; PULSE 62; TEMP 36.6; O2SAT 96
--- NOTE | 2017-03-24 13:01 | Discharge Summary ---
Discharge Summary Date of Service Mar 24, 2017. Discharge Summary Admission Date: Mar 15, 2017 at 14:56 Discharge Date: Mar 18, 2017 Discharge Disposition: Home Principal Diagnosis: Intractable Low Back Pain Secondary Diagnoses/Problems: Chronic Low back pain Multiple Sclerosis Anxiety/Depression Procedures: [facility] Radiology [place] [address] Dictated: 03/17/17 1245 Transcribed: 03/17/17 1245 ARG Printed Date/Time: [~ rep prt dt]/[~ rep prt tm] [~ rep ct labl] - [~ rep ct ivnm] [~ rep ct add3]] MRI OF THE BRAIN WITHOUT AND WITH IV CONTRAST CLINICAL HISTORY: Multiple sclerosis COMPARISON STUDY: 06/26/2015 TECHNIQUE: MRI of the brain was performed from the vertex to the skull base utilizing various T1 and T2 weighted sequences. Following the IV administration of 10 mL of Gadavist contrast, additional enhanced images were obtained. FINDINGS: Sagittal T1, axial diffusion, proton density and T2 weighted axial, coronal FLAIR, and pre and post axial T1-weighted images were acquired. These were supplemented with post gadolinium coronal T1 weighted images. No intra or extra-axial mass lesions are visualized. Axial diffusion-weighted images reveal no evidence of acute or subacute infarction. There is no evidence of ventricular dilatation. Proton density T2-weighted and FLAIR images reveal essentially stable foci of increased T2 signal within the white matter. The findings are consistent with the clinical history of multiple sclerosis. There is a 9 mm focus within the left frontal white matter. There is an 8 mm focus within the left centrum semiovale. There is a 10 mm 6 mm focus within the left parietal white matter. There is a 13 mm focus adjacent the anterior horn of the right lateral ventricle. There is a 10 mm focus in the left occipital white matter. There is a 12 mm focus within the right temporal white matter. There are no abnormal flow voids. There is no evidence of pathologic enhancement. IMPRESSION: 1. Multiple foci of abnormal increased T2 signal within the white matter, consistent with the clinical history of multiple sclerosis. These remain essentially stable. There is no pathologic enhancement to indicate an active plaque. Electronically signed by: Christopher Herrera M.D. 03/17/2017 12:50 PM Dictated Date/Time: 03/17/2017 12:45 PM <AttendingPhy>Kiesha Roman M.D.</AttendingPhy> <FamilyPhy>Lucio Evans D.O.</FamilyPhy> <PrimaryPhy>Lucio Evans D.O.</PrimaryPhy> < UnitNumber>[id number]</UnitNumber> <VisitNumber>[id number]</VisitNumber> < PatientName>CARLOS MILLER</PatientName> <DateOfBirth>1985</DateOfBirth> < Location>[facility]</Location> <ServiceDate>03/15/17</ServiceDate> <MNE>ESINDI</MNE> < OrderingPhy>Florentin Omalley M.D.</OrderingPhy> <OrderingPhyMNE>f rep ord dr gabriel</ OrderingPhyMNE> <DictatingPhyMNE>f rep dict dr gabriel</DictatingPhyMNE> <CCListMNE> f rep ct lucinae</CCListMNE> <AdmittingPhyMNE>f pt admit dr gabriel</AdmittingPhyMNE> < AttendingPhyMNE>f pt attend dr gabriel</AttendingPhyMNE> <ConsultingPhyMNE>f pt consult dr gabriel</ConsultingPhyMNE> <FamilyPhyMNE>f pt fam dr gabriel</FamilyPhyMNE> <OtherPhyMNE>f pt other dr gabriel</OtherPhyMNE> < PrimaryPhyMNE>f pt prim care dr gabriel</PrimaryPhyMNE> <ReferringPhyMNE>f pt referring dr gabriel</ReferringPhyMNE> MRI CERVICAL SPINE COMBO CLINICAL HISTORY: Multiple sclerosis. Possible flare. TECHNIQUE: Sagittal and axial T1, T2 and STIR images were obtained. Images were acquired before and after administration of 10 cc of intravenous Gadavist COMPARISON STUDY: No previous studies for comparison. There are no suspicious areas of marrow replacement. No intrinsic cervical cord lesions are visualized. C2-3: There is no significant disc bulge or focal herniation. There is no spinal or foraminal stenosis C3-4: There is a mild circumferential disc bulge. There is no significant spinal foraminal stenosis C4-5: There is a circumferential disc bulge with mild spinal canal narrowing. There is no significant foraminal narrowing C5-6 :There are postsurgical changes of a discectomy and anterior fusion. There is no recurrent disc herniation. There is no spinal stenosis. There is minor left-sided foraminal narrowing C6-7: There is a mild circumferential disc bulge. There is no significant spinal or foraminal stenosis C7-T1: There is no evidence of disc bulge or focal herniation. There is no evidence of spinal or foraminal stenosis. There is no pathologic enhancement. IMPRESSION: 1. Postsurgical changes the C5-6 level 2. Disc bulges at the C3-4, C4-5, and C6-7 levels. Minor spinal canal narrowing at the C 4-5 level. 3. No cord lesions identified. No evidence of pathologic enhancement. Electronically signed by: Christopher Herrera M.D. 03/17/2017 12:58 PM Dictated Date/Time: 03/17/2017 12:52 PM Patient Name: CARLOS MILLER Unit Number: [id number] Dictated: 03/15/171552 Transcribed: 03/15/171552 NOREEN Printed Date/Time: [~ rep prt dt]/[~ rep prt tm] [~ rep ct labl] - [~ rep ct ivnm] [facility] Radiology [place] [address] Dictated: 03/15/171552 Transcribed: 03/15/171552 NOREEN Printed Date/Time: [~ rep prt dt]/[~ rep prt tm] [~ rep ct labl] - [~ rep ct ivnm] MRI OF THE LUMBAR SPINE WITHOUT CONTRAST CLINICAL HISTORY: Back pain with radiculopathy. Extremity numbness. COMPARISON STUDY: No previous studies for comparison. TECHNIQUE: Utilizing a 1.5 Karen magnet and dedicated coil, multiplanar, multiecho imaging of the lumbar spine was performed without IV contrast. FINDINGS: For purposes of numbering on this exam, the L5-S1 disc space is assigned to axial image 23 of 25. Alignment of the lumbar spine is anatomic. Vertebral body heights are maintained. There are Schmorl's nodes at several levels. The conus terminates at the lower L1 level. There is no intracanalicular mass or fluid collection. The paravertebral soft tissues are unremarkable. The central canal is congenitally narrow. There is prominent epidural fat within the lower lumbar canal and the sacral canal. L1-2: The central canal and neural foramen are patent. L2-3: There is minimal disc bulge. There is minimal narrowing of the central canal. Neural foramen are patent. L3-4: Central canal and neural foramen are patent. L4-5: Central canal and neural foramen are patent. L5-S1: Central canal and neural foramen are patent. IMPRESSION: 1. Minimal degenerative changes of the lumbar spine. No disc herniation. Slight disc bulge at L2-L3 that results in minimal narrowing of the central canal. No significant central canal stenosis. 2. Congenitally narrow canal with prominent epidural fat within the lower lumbar canal and sacral canal. 3. No fracture. Electronically signed by: Kemal Sheldon M.D. 03/15/2017 4:01 PM Dictated Date/Time: 03/15/2017 3:53 PM Consultations: Neurology Pain Management Medication Reconciliation Continued Medications: Cholecalciferol (Vitamin D) 2,000 Unit Cap 4000 INTER.UNIT PO DAILY Eletriptan (Relpax) 40 Mg Tab 40 MG PO UD PRN for Migraine, TAB TAKE ONLY MD DIRECTS Escitalopram Oxalate (Lexapro) 20 Mg Tab 20 MG PO DAILY, TAB Interferon Beta-1A (Avonex Pen) 30 Mcg/0.5 Ml Kit 30 MCG IM WK ADMINISTER EVERY SATURDAY Magnesium Chloride (Slow-Mag Tab) 64 Mg Tabcr 64 MG PO DAILY Montelukast Sodium (Singulair) 10 Mg Tab 10 MG PO DAILY, TAB Naratriptan Hcl (Amerge) 2.5 Mg Tab 2.5 MG PO UD Take one tablet at onset of migraine, may repeat x 1 in a 24 hour period if needed. TAKE ONLY MD DIRECTS. Oxycodone/Acetaminophen 10MG/325MG (Percocet 10MG/325MG) Tab 1 TAB PO Q12 PRN for Pain, TAB Riboflavin (Vitamin B-2) 100 Mg Tab 200 MG PO BID Sumatriptan Succinate (Imitrex Statdose) 6 Mg/0.5 Ml Inj 6 MG IM UD PRN for Migraine TAKE ONLY MD DIRECTS Sumatriptan Succinate (Imitrex) 50 Mg Tab 50 MG PO UD PRN for Migraine, TAB TAKE ONLY MD DIRECTS Admission Information HPI (per Admitting provider): CHIEF COMPLAINT: Increasing back pain for the last 2 days with inability to walk since this morning. HISTORY OF PRESENT COMPLAINT: She is a 32-year-old female with significant past medical history including multiple sclerosis, anxiety/depression, chronic back pain, history of intermittent asthma, apparently has been complaining of back pain for the last 2 days. She contacted her primary care's office for that and they are going to put her appointment with the pain therapist as an outpatient. She has had injection by the pain therapist over 1 year ago for ongoing back pain. She complains to have pain at the lower back for the last 2 days and this morning the pain was worse with radiation down to the legs and also bilateral over buttocks area and she also complained to have numbness or tingling involving the upper and lower extremities. She could hardly walk this morning thus she was brought to the Emergency Room. No fever, chills or rigors. No problem with urine and/or bowel habit. He does not have any headache, any blurred vision or any weakness involving any side in particular. No chest pain, shortness of breath or palpitation. Physical Exam (per Admitting): PHYSICAL EXAMINATION: GENERAL: On examination in the Emergency Room, she was not having any acute distress. Her numbness and tingling was improving when I saw her. VITAL SIGNS: Temperature 36.6, pulse was 79, blood pressure 148/102. Saturation >90% on room air. HEAD, EYES, EARS, NOSE, AND THROAT: Unremarkable. NECK: No neck stiffness. Neck was supple. CHEST: Clear to auscultation bilaterally. HEART: S1, S2 regular, no murmur. ABDOMEN: Soft, benign, nontender, no organomegaly. Bowel sounds present. EXTREMITIES: Negative for any edema. MUSCULOSKELETAL SYSTEM: Did not show any acute arthritis involving any joint. CENTRAL NERVOUS SYSTEM: She was alert, awake, oriented x3. She did not have any focal sensory and/or motor deficit during my examination. Her straight leg raising did not cause any pain at the back or any radiation of the pain. Hospital Course Chronic Low back pain Has been worsening in the last few days MRI showed minimal degenerative changes of the lumbar spine Slight disc bulge at L2-L3 that results in minimal narrowing of the central canal. Congenitally narrow canal with prominent epidural fat within the lower lumbar canal and sacral canal. On Dilaudid, but she said the Dilaudid does not help She would rather have the Dilaudid to change to morphine Ok to give zofran before administering morphine d/c oxycodone refused the Lidoderm patch because it does not help, will d/c it Increase morphine to 4 mg q4h prn Pt would like to discuss with pain management about nerve block since it worked for her neck pain. Case discussed with Dr. Ocampo that recommended muscle relaxant since MRI did not show and significant changes that requires injection No further therapy as per pain management Pt refused muscle relaxant. she is interested on a patch like fentanyl patch Continue heat and ice/ physical therapy bas needed Hx Neck Pain Stable MRI of the neck showed: 1. Postsurgical changes the C5-6 level 2. Disc bulges at the C3-4, C4-5, and C6-7 levels. Minor spinal canal narrowing at the C 4-5 level. 3. No cord lesions identified. No evidence of pathologic enhancement. Multiple Sclerosis. Doesn't seem to be a flare up. Neuro on board Continue current management MRI of the Head: 1-Multiple foci of abnormal increased T2 signal within the white matter. Stable Anxiety/depression. Continue with Lexapro. stable Hx asthma Continue outpatient med stable DVT px on subQ heparin. CODE STATUS FULL CODE DISPOSITION Discharge home today Follow up with your PCP Dr. Evans on 03/22 at 1:05 pm Total time spent on discharge = 35 minutes This includes examination of the patient, discharge planning, medication reconciliation, and communication with other providers. Discharge Instructions Discharge Instructions Date of Service Mar 18, 2017. Admission Reason for Admission: Intractable Low Back Pain Discharge Discharge Diagnosis / Problem: Chronic Low back pain, Multiple Sclerosis, Anxiety/Depression Discharge Goals Goal(s): Decrease discomfort, Improve function, Increase independence, Improve disease control Activity Recommendations Activity Limitations: resume your previous activity (Gradually as tolerated) . Instructions / Follow-Up Instructions / Follow-Up Follow up with your primary care provider Dr. Evans on 03/22 @ 1:05 pm Fall precaution Physical therapy as needed Script written for a cane Current Hospital Diet Patient's current hospital diet: Regular Diet Discharge Diet Recommended Diet: Regular Diet Pending Studies Studies pending at discharge: no Medical Emergencies . Who to Call and When: Medical Emergencies: If at any time you feel your situation is an emergency, please call 911 immediately. . Non-Emergent Contact Non-Emergency issues call your: Primary Care Provider Call Non-Emergent contact if: your pain is not controlled, your pain is worsening, you have any medication questions . . "Provider Documentation" section prepared by Kiesha Roman. . VTE Core Measure Inpt VTE Proph given/why not?: Unfractionated heparin SQ [place] Drug Monitoring Program Search Results: patient reviewed within database (last oxycodone script was on 03/11/17 for 30days) Additional Copies To Lucio Evans D.O.
[2017-04-23] MEDS ORDERED: QUET-115 PO (12:17)
== END 2017-03-18 15:39 | disposition home or self-care (01) ==
LOC: C.EDB 10:50 → C.4E 14:56 → EDBEDREQ 14:59 → ENRESERV 16:35
PROVIDERS: ADMIT Internal Medicine; ATTEND Internal Medicine
DX: M54.5 Low back pain (principal); G35 Multiple sclerosis; J45.909 Unspecified asthma, uncomplicated; Z83.6 Family history of other diseases of the respiratory system; Z80.9 Family history of malignant neoplasm, unspecified; Z82.3 Family history of stroke

== ENCOUNTER → 2017-04-12 | Outpatient (CLI) | payer OTHER ==
[~2017-04-12] MED LIST changes: +ACET325T96 PO; +NITR-5 PO; +OXYC-106 PO; +PRENTAB26 PO; +QUET1TAB32 PO; +SRQ100 PO
--- NOTE | 2017-04-12 18:35 | DIAGNOSTIC IMAGING REPORT ---
FIRST TRIMESTER OBSTETRICAL ULTRASOUND CLINICAL HISTORY: . Multiple sclerosis. History of miscarriages. COMPARISON STUDY: 04/04/2016 FINDINGS: A single alive intrauterine gestation was visualized. The crown-rump length measured 8 mm corresponding to an estimated postmenstrual age of 6 weeks and 5 days. There is a 4 mm yolk sac. The heart rate was 131. There is a complex right ovarian cyst, likely representing a corpus luteum. There is trace free fluid in the cul-de-sac. IMPRESSION: Single live intrauterine gestation. The estimated postmenstrual age is 6 weeks and 5 days. Electronically signed by: Christopher Herrera M.D. 04/12/2017 6:34 PM Dictated Date/Time: 04/12/2017 6:31 PM
== END | disposition home or self-care (01) ==
LOC: C.ULTR 17:22
PROVIDERS: ATTEND Physician Assistant
DX: O09.291 Supervision of pregnancy with other poor reproductive or obstetric history, first trimester (principal); Z3A.01 Less than 8 weeks gestation of pregnancy

== ENCOUNTER 2017-04-14 17:03 | Emergency (ER) | payer OTHER ==
[~2017-04-14] VITALS: Ht 167.6 cm; Wt 95.0 kg
[~2017-04-14 17:03] MED LIST changes: -ACET325T96 PO; -NITR-5 PO; -PRENTAB26 PO; -QUET1TAB32 PO; -SRQ100 PO
[2017-04-14 17:05] VITALS: TEMP 36.6; Ht 167.6 cm; Wt 95.0 kg
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
[2017-04-14 18:39] LABS: HEMATOCRIT 39.3 % (37-47); MEAN CELL VOLUME 90.3 fL (80-100); MEAN CORPUSCULAR HEMOGLOBIN 31.3 pg (25-34); MEAN CORPUSCULAR HGB CONC 34.6 g/dl (32-36); MEAN PLATELET VOLUME 10.6 fL (7.4-10.4); PLATELET COUNT 233 K/uL (130-400); RED BLOOD COUNT 4.35 M/uL (4.2-5.4); WHITE BLOOD COUNT 12.16 K/uL (4.8-10.8)
[2017-04-14 18:42] LABS: URINE APPEARANCE CLOUDY (CLEAR); URINE COLOR DK YELLOW; URINE EPITHELIAL CELL AUTO >30 /lpf (0-5); URINE NITRITE NEG (NEG); URINE PH 6.5 (4.5-7.5); URINE SPECIFIC GRAVITY 1.035 (1.000-1.030); UROBILINOGEN NEG (NEG); ZZUR CULT IF INDIC CLEAN CATCH YES
[2017-04-14] MEDS ORDERED: PRENTAB26 PO (18:48)
[2017-04-14] MEDS ORDERED: ACET325T96 PO (18:48)
[2017-04-14 18:50] LABS: MANUAL MICROSCOPIC REQUIRED? NO; REVIEW REQ? YES
[2017-04-14 18:51] LABS: URINE BILIRUBIN NEG (NEG)
[2017-04-14 18:55] LABS: BUN/CREATININE RATIO 12.7 (10-20); CALCIUM 9.2 mg/dl (8.5-10.1); CREATININE 0.52 mg/dl (0.60-1.20); POTASSIUM 2.9 mmol/L (3.5-5.1)
[2017-04-14] MEDS ORDERED: POTASSIUM CHLR 20 MEQ / WTR 20 MEQ in PREMIXED WATER 100 ML IV STA (19:20)
[2017-04-14] MEDS ORDERED: SODIUM CHLORIDE 0.9% 1000ML 2,000 ML IV ONE (19:30)
[2017-04-14] MEDS: POTASSIUM CHLR 10 MEQ / WTR 10 MEQ IV SCH ×2 (19:44→20:32)
[2017-04-14] MEDS ORDERED: NITROFURANTOIN MONOHYDRATE 100 MG CAP PO ONE (20:30)
[2017-04-14 21:00] LABS: BENZODIAZEPINE, URINE POS (NEG); COCAINE,URINE NEG (NEG); PHENCYCLIDINE, URINE NEG (NEG)
[2017-04-14] MEDS ORDERED: DiphenhydrAMINE HCL 50 MG/ML VIAL IV STA (21:49)
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
[2017-04-14] MEDS ORDERED: NITR-5 PO (22:52)
[2017-04-14 23:45] VITALS: BP 126/75; PULSE 75; O2SAT 97
[2017-04-18 11:04] LABS: HYDROXYETHYLFLURAZEPAM CONF NEGATIVE NG/ML (CUTOFF=50); HYDROXYMIDAZOLAM NEGATIVE NG/ML (CUTOFF=50); HYDROXYTRIAZOLAM CONF NEGATIVE NG/ML (CUTOFF=50); TEMAZEPAM CONF NEGATIVE NG/ML (CUTOFF=50)
== END 2017-04-14 23:43 | disposition home or self-care (01) ==
LOC: C.EDB 17:03 → C.EDA 23:43
DX: F22 Delusional disorders (principal); O99.89 Other specified diseases and conditions complicating pregnancy, childbirth and the puerperium; R10.9 Unspecified abdominal pain; Z3A.01 Less than 8 weeks gestation of pregnancy; E87.6 Hypokalemia; N39.0 Urinary tract infection, site not specified; R19.7 Diarrhea, unspecified; G35 Multiple sclerosis; J45.909 Unspecified asthma, uncomplicated; Z87.891 Personal history of nicotine dependence; Z82.3 Family history of stroke

== ENCOUNTER 2017-04-16 21:10 | Inpatient (IN) | payer OTHER ==
[~2017-04-16] VITALS: Ht 167.6 cm; Wt 94.9 kg
[~2017-04-16 21:10] MED LIST changes: +ACET325T96 PO; +NITR-5 PO; +PRENTAB26 PO
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
[2017-04-16 23:23] LABS: URINE APPEARANCE CLOUDY (CLEAR); URINE COLOR DK YELLOW; URINE EPITHELIAL CELL AUTO >30 /lpf (0-5); URINE NITRITE NEG (NEG); URINE SPECIFIC GRAVITY 1.028 (1.000-1.030); UROBILINOGEN NEG (NEG); ZZUR CULT IF INDIC CLEAN CATCH YES
[2017-04-16 23:33] LABS: BASO % 0.4 %; BASO ABS # 0.05 K/uL (0-0.2); COMPLETE YES; EOS % 1.2 %; HEMATOCRIT 38.5 % (37-47); IG% 0.2 %; LYMPH % 22.9 %; LYMPH ABS # 3.02 K/uL (1.2-3.4); MEAN CELL VOLUME 89.1 fL (80-100); MEAN CORPUSCULAR HEMOGLOBIN 30.3 pg (25-34); MEAN PLATELET VOLUME 10.6 fL (7.4-10.4); MONO % 5.9 %; NEUT % 69.4 %; PLATELET COUNT 243 K/uL (130-400); RED BLOOD COUNT 4.32 M/uL (4.2-5.4)
[2017-04-16 23:37] LABS: MANUAL MICROSCOPIC REQUIRED? NO; REVIEW REQ? YES; URINE BILIRUBIN NEG (NEG)
[2017-04-16 23:40] LABS: BENZODIAZEPINE, URINE NEG (NEG); COCAINE,URINE NEG (NEG); PHENCYCLIDINE, URINE NEG (NEG)
[2017-04-16 23:47] LABS: URINE MUCUS PRESENT (NONE PRSENT)
[2017-04-16 23:50] LABS: BUN/CREATININE RATIO 10.2 (10-20); CALCIUM 9.1 mg/dl (8.5-10.1); CREATININE 0.57 mg/dl (0.60-1.20); POTASSIUM 2.6 mmol/L (3.5-5.1)
[2017-04-16 23:56] LABS: ACETAMINOPHEN < 2 ug/ml (10-30)
[2017-04-17 00:01] LABS: THYROID STIMULATING HORMONE 0.288 uIu/ml (0.300-4.500)
[2017-04-17] MEDS ORDERED: POTASSIUM CHLORIDE 10 MEQ / 100ML WTR IV STA (00:15)
[2017-04-17] MEDS ORDERED: SODIUM CHLORIDE 0.9% 1000ML 1,000 ML IV STA ×2 (00:15)
[2017-04-17] MEDS ORDERED: ACETAMINOPHEN 500 MG TAB PO STA (01:19)
[2017-04-17 01:44] LABS: MAGNESIUM 1.7 mg/dl (1.8-2.4)
[2017-04-17] MEDS ORDERED: POTASSIUM CHLR 10 MEQ / WTR 10 MEQ in PREMIXED WATER 100 ML IV SCH (01:45)
[2017-04-17] MEDS ORDERED: ACETAMINOPHEN 325 MG TAB PO PRN (01:45)
[2017-04-17] MEDS ORDERED: POTASSIUM CHLORIDE 10 MEQ TABCR PO STA (01:56)
[2017-04-17] MEDS ORDERED: [UNRECOGNIZED DRUG - OTHER] IV SCH (02:15)
[2017-04-17] MEDS ORDERED: D5W IV SCH (02:15)
[2017-04-17] MEDS ORDERED: POTASSIUM CHLORIDE IV SCH (02:15)
[2017-04-17] MEDS ORDERED: MAGNESIUM SULFATE IV SCH (02:15)
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
[2017-04-17 03:39] VITALS: BP 128/94; PULSE 88; TEMP 36.5; O2SAT 97; Ht 167.6 cm; Wt 94.9 kg
[2017-04-17] MEDS ORDERED: SODIUM CHLORIDE 0.9% 1000ML 1,000 ML IV SCH (06:30)
[2017-04-17 06:33] LABS: BLOOD UREA NITROGEN 5 mg/dl (7-18); BUN/CREATININE RATIO 11.6 (10-20); CALCIUM 8.4 mg/dl (8.5-10.1); CARBON DIOXIDE 22 mmol/L (21-32); CHLORIDE 110 mmol/L (98-107); CREATININE 0.44 mg/dl (0.60-1.20); GLUCOSE 94 mg/dl (70-99); POTASSIUM 3.1 mmol/L (3.5-5.1); SODIUM 141 mmol/L (136-145)
[2017-04-17 07:16] VITALS: BP 123/75; PULSE 86; TEMP 36.7; O2SAT 98
[2017-04-17] MEDS ORDERED: PRENATAL VITAMIN TAB PO SCH (09:00)
[2017-04-17 10:30] VITALS: BP 130/90; PULSE 82; TEMP 36.6; O2SAT 98
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
[2017-04-17] MEDS ORDERED: NURSING DECISION MEDICATION ORDER SCH (11:45)
[2017-04-17 13:08] LABS: BLOOD UREA NITROGEN 6 mg/dl (7-18); CALCIUM 9.1 mg/dl (8.5-10.1); CARBON DIOXIDE 18 mmol/L (21-32); CHLORIDE 112 mmol/L (98-107); CREATININE 0.46 mg/dl (0.60-1.20); GLUCOSE 97 mg/dl (70-99); SODIUM 139 mmol/L (136-145)
[2017-04-17 13:27] LABS: POTASSIUM 3.9 mmol/L (3.5-5.1)
--- NOTE | 2017-04-17 13:29 | Progress Note ---
Medicine Progress Note Date & Time of Visit: Apr 17, 2017 at 12:47. Subjective Pt was seen and examined Standing in her room with no distress Pt is very hyper, paranoid with pressure speech She believes someone hacked her cell someone is trying to hurt her baby and she is afraid for her mother she has flight of thoughts she said that she needs to leave the hospital that she can go to talk to a student loan counselor to get a loan to buy a house She said that her diarrhea resolved she had a normal BM this morning Denies any chest pain, palpitation, dizziness and SOB Objective Last 8 Hrs Date Time Temp Pulse Resp B/P (MAP) Pulse Ox O2 Delivery O2 Flow Rate FiO2 04/17/17 12:00 Room Air 04/17/17 10:30 36.6 82 20 130/90 (103) 98 Room Air 04/17/17 08:00 Room Air 04/17/17 07:16 36.7 86 20 123/75 (91) 98 Room Air Physical Exam: General- No acute distress, paranoid Head- atraumatic Eyes- PERRL, EOMI ENT- oropharynx clear Neck- supple, no JVD Lungs- clear to auscultation Heart- regular rhythm Abdomen- normal bowel sounds, Extremities- no calf tenderness Neuro- alert, oriented x 3; PERRL, EOMI; no facial palsy; no dysarthria Skin- warm & dry Laboratory Results: Last 24 Hours Test 04/16/17 21:30 04/16/17 23:20 04/17/17 05:52 04/17/17 11:58 Urine Color DK YELLOW Urine Appearance CLOUDY Urine pH 6.0 Urine Specific [place] 1.028 Urine Protein 1+ Urine Glucose (UA) NEG Urine Ketones 4+ Urine Occult Blood NEG Urine Nitrite NEG Urine Bilirubin NEG Urine Urobilinogen NEG Urine Leukocyte Esterase NEG Urine WBC (Auto) 5-10 /hpf Urine RBC (Auto) 0-4 /hpf Urine Hyaline Casts (Auto) 0 /lpf Urine Epithelial Cells (Auto) >30 /lpf Urine Bacteria (Auto) 2+ Urine Pathogenic Casts /lpf Urine Mucus PRESENT Urine Test POS Urine Opiates Screen NEG Urine Methadone, Qualitative NEG Urine Barbiturates NEG Urine Phencyclidine (PCP) Level NEG Ur Amphetamine/Methamphetamine NEG MDMA (Ecstasy) Screen NEG Urine Benzodiazepines Screen NEG Urine Cocaine Metabolite NEG Urine Marijuana (THC) POS White Blood Count 13.20 K/uL Red Blood Count 4.32 M/uL Hemoglobin 13.1 g/dL Hematocrit 38.5 % Mean Corpuscular Volume 89.1 fL Mean Corpuscular Hemoglobin 30.3 pg Mean Corpuscular Hemoglobin Concent 34.0 g/dl Platelet Count 243 K/uL Mean Platelet Volume 10.6 fL Neutrophils (%) (Auto) 69.4 % Lymphocytes (%) (Auto) 22.9 % Monocytes (%) (Auto) 5.9 % Eosinophils (%) (Auto) 1.2 % Basophils (%) (Auto) 0.4 % Neutrophils # (Auto) 9.16 K/uL Lymphocytes # (Auto) 3.02 K/uL Monocytes # (Auto) 0.78 K/uL Eosinophils # (Auto) 0.16 K/uL Basophils # (Auto) 0.05 K/uL RDW Standard Deviation 44.9 fL RDW Coefficient of Variation 13.7 % Immature Granulocyte % (Auto) 0.2 % Immature Granulocyte # (Auto) 0.03 K/uL Sodium Level 141 mmol/L 141 mmol/L Potassium Level 2.6 mmol/L 3.1 mmol/L Chloride Level 109 mmol/L 110 mmol/L Carbon Dioxide Level 23 mmol/L 22 mmol/L Anion Gap 9.0 mmol/L 9.0 mmol/L Blood Urea Nitrogen 6 mg/dl 5 mg/dl Creatinine 0.57 mg/dl 0.44 mg/dl Est Creatinine Clear Calc Drug Dose 161.4 ml/min 209.1 ml/min Estimated GFR () 140.2 > 150.0 Estimated GFR (Non- 121.0 131.7 BUN/Creatinine Ratio 10.2 11.6 Random Glucose 119 mg/dl 94 mg/dl Calcium Level 9.1 mg/dl 8.4 mg/dl Magnesium Level 1.7 mg/dl 2.0 mg/dl Total Bilirubin 0.3 mg/dl Aspartate Amino Transf (AST/SGOT) 11 U/L Alanine Aminotransferase (ALT/SGPT) 16 U/L Alkaline Phosphatase 69 U/L Total Protein 7.1 gm/dl Albumin 3.5 gm/dl Globulin 3.6 gm/dl Albumin/Globulin Ratio 1.0 Thyroid Stimulating Hormone (TSH) 0.288 uIu/ml Salicylates Level 3.4 mg/dl Acetaminophen Level < 2 ug/ml Ethyl Alcohol mg/dL < 3.0 mg/dl Phosphorus Level 3.0 mg/dl Date/Time Source Procedure Growth Status 04/17/17 02:10 Nasal MRSA DNA Surveillance Screen - Final Specimen Negative for MRSA by DNA Probe Complete 04/16/17 21:30 Urine , Clean Catch Urine Culture Pending Received Assessment & Plan Electrolytes Imbalance Possible related to diarrhea vs poor PO intake On admission K was 2.6 and Mg was 1.7 K this morning 3.1 K right before morning lab braydon and Mg replaced Check BMP at noon continue monitor electrolytes Delusions/Paranoia psych consulted Pt will be transfer to the Psych unit once her electrolytes stable She cannot leave AMA She had 2 miscarriages in the past Currently 7 weeks per ultrasound findings. Recent ultrasound on 04/13 showed a possible subchorionic hemorrhage, Denied any vaginal bleeding Result discussed with OBGYN that said the baby heart beat was normal. She can follow as an outpatient with ObGyn and a repeat U/S as an outpatient Pt said that she has an upcoming appt with OB Pt said that she stopped taking all her med when she found out she was She only taking vitamin and tylenol now. Tobacco abuse Counseling on smoking cessation Continue Nicotine Patch Chronic pain- Was taking oxycodone PRN Polysubstance abuse UDS positive for marijuana Counseling on drug cessation Asthma Stable Leukocytosis likely related to Afebrile Abnormal TSH TSH 0.288 Possible related to Will need to repeat as an outpatient in few weeks DVT px On SCDs CODE STATUS FULL CODE DISPOSITION Will transfer to psych Follow up with OBGYN Consultants: Psych Current Inpatient Medications: Current Inpatient Medications Medications (Trade) Dose Ordered Sig/Sunny Route Start Time Stop Time Status Last Admin Dose Admin Acetaminophen (Tylenol Tab) 650 mg Q4H PRN PO 04/17/17 01:45 05/17/17 01:44 04/17/17 06:40 650 MG Prenat Multivit/ Mono/Iron/Folic Ac ( Vitamin Tab) 1 tab DAILY PO 04/17/17 09:00 05/17/17 08:59 04/17/17 07:24 1 TAB
--- NOTE | 2017-04-17 13:52 | Discharge Instructions ---
Discharge Instructions Date of Service Apr 17, 2017. Admission Reason for Admission: Homicidal Ideations, Hypokalemia Discharge Discharge Diagnosis / Problem: Delusion/Paranoid/Hypokalemia/Low Magnesium/ Discharge Goals Goal(s): Decrease discomfort, Improve function, Improve disease control Activity Recommendations Activity Limitations: resume your previous activity (as tolerated) . Instructions / Follow-Up Instructions / Follow-Up Pt will transfer to mental health unit Follow up with your OBGYN Follow up with your physician care physician once discharge from psych unit Check BMP and Mg on Saturday Current Hospital Diet Patient's current hospital diet: Regular Diet Discharge Diet Recommended Diet: Regular Diet Pending Studies Studies pending at discharge: yes List of pending studies: urine cx Medical Emergencies . Who to Call and When: Medical Emergencies: If at any time you feel your situation is an emergency, please call 911 immediately. . Non-Emergent Contact Non-Emergency issues call your: Primary Care Provider Call Non-Emergent contact if: you have a fever, you have any medication questions . . "Provider Documentation" section prepared by Kiesha Roman. . VTE Core Measure Inpt VTE Proph given/why not?: SCD's
[2017-04-17 13:54] VITALS: BP 130/90; PULSE 82; TEMP 36.6; O2SAT 98
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
--- NOTE | 2017-04-22 12:21 | Psychiatric Consultation ---
Psychiatric Consultation Date of Service: Apr 22, 2017. The patient was cleared for transfer to mental health within 12 hours of the consult being placed. Decision made to eval and treat on the mental health unit, rather than as a consult.
[2017-04-23 15:32] LABS: SYNTHETIC CANNABINOIDS QL URIN NEGATIVE (Negative)
== END 2017-04-17 14:00 | DRG 781 ==
LOC: C.EDB 21:11 → C.2E 04-17 01:41 → EDBEDREQ 04-17 01:47 → ENRESERV 04-17 02:15
PROVIDERS: ADMIT Hospitalist; ATTEND Internal Medicine
DX: O99.281 Endocrine, nutritional and metabolic diseases complicating pregnancy, first trimester (principal); N39.0 Urinary tract infection, site not specified; O99.321 Drug use complicating pregnancy, first trimester; O99.341 Other mental disorders complicating pregnancy, first trimester; O99.331 Smoking (tobacco) complicating pregnancy, first trimester; O99.511 Diseases of the respiratory system complicating pregnancy, first trimester; E87.6 Hypokalemia; O09.891 Supervision of other high risk pregnancies, first trimester; E83.42 Hypomagnesemia; G89.29 Other chronic pain; J45.909 Unspecified asthma, uncomplicated; F22 Delusional disorders; F12.10 Cannabis abuse, uncomplicated; F17.200 Nicotine dependence, unspecified, uncomplicated; Z3A.01 Less than 8 weeks gestation of pregnancy; Z82.3 Family history of stroke; O99.89 Other specified diseases and conditions complicating pregnancy, childbirth and the puerperium; R10.9 Unspecified abdominal pain; R19.7 Diarrhea, unspecified; G35 Multiple sclerosis; Z87.891 Personal history of nicotine dependence

== ENCOUNTER 2017-04-17 12:45 | Inpatient (IN) | payer OTHER ==
[~2017-04-17] VITALS: Ht 166.4 cm; Wt 96.8 kg
[2017-04-17 14:20] VITALS: BP 126/83; PULSE 76; TEMP 36.7; Ht 166.4 cm; Wt 96.8 kg
[2017-04-17] MEDS ORDERED: MAGNESIUM HYDROXIDE SUSP 30 ML UDC PO PRN (16:00)
[2017-04-17] MEDS ORDERED: SODIUM CHLORIDE 0.65% NA SOLN 45 ML (OCEAN) PRN (16:00)
[2017-04-17] MEDS ORDERED: DiphenhydrAMINE HCL 50 MG/ML VIAL IM PRN (16:00)
[2017-04-17] MEDS ORDERED: BISMUTH SUBSALICYLATE PER ML OMNICELL CHARGE PO PRN (16:00)
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
[2017-04-17] MEDS ORDERED: QUETIAPINE FUMARATE 25 MG TAB PO ONE (18:15)
[2017-04-17] MEDS: QUETIAPINE FUMARATE 25 MG TAB PO SCH (21:44)
[2017-04-17] MEDS: hydrOXYzine HCL 25 MG TAB PO PRN (22:41)
[2017-04-18] MEDS: hydrOXYzine HCL 25 MG TAB PO PRN ×4 (00:08→21:22)
[2017-04-18 06:48] VITALS: BP_SYST 116; BP_SYST 121; BP_DIAS 83; BP_DIAS 86; PULSE 76; PULSE 94; TEMP 36.8
[2017-04-18] MEDS: PRENATAL VITAMIN TAB PO SCH (07:34)
[2017-04-18] MEDS: QUETIAPINE FUMARATE 25 MG TAB PO SCH (07:34)
--- NOTE | 2017-04-18 13:20 | Medical Student: BHU Only ---
Psychiatric Progress Note CC: "All she does is doubt, doubt, doubt." SUBJECTIVE: The patient was seen and assessed today, and progress was reviewed with nursing. The patient reports being 'stressed out'. Sleep was "difficult"; noted to be for 2 hours by staff. Overall she has calmed down since yesterday but remains loose and is easily agitated. She is eating her meals. She has been taking medications offered to her today. She also had a meeting with her mother this morning that seemed to agitate her, causing her to cry and say that all her mother does is 'doubt' her because of her past history of addiction. She also mentioned that they have not had much of a relationship with her since September because her ex boyfriend cut them off. However, it is still difficult to assess what is real and what is confabulation. The patient was very upset last night and did have a brief period of elopement from the unit. She was caught by security out in the parking lot and brought in. It took a bit of time to calm her down, but she seems to be processing the fact that she is in a mental health unit now. She remains very fixated on having her baby evaluated. ROS: Denying feeling depressed or sad. Acknowledges anxiety and goes back and forth between saying she has 'OCD' and 'schizophrenia.' However, she denies hallucinations, HI/SI. MSE: Appearance is that of a disheveled and upset woman at time of interview. She is fairly cooperative with interview but does not always answer questions appropriately. Eye contact is appropriate. Motor behavior is normal. Speech: Volume is raised, speech is pressured and rapid. Affect: Enhanced. Mood : "Anxious". Thought process: Tangential with FOI and possible confabulations. Difficult to follow at times, other times is more logical. Thought content: Obsessions and delusions are present. Fixation on her unborn child and her ex bf "Lupe" are continuous themes. Perception: WIthout hallucinations. Insight is estimated to be limited. Judgment is estimated to be extremely poor. ASSESSMENT: This is a 32 y/o female approx 7-8 weeks presenting with signs and symptoms consistent with xiao with psychosis and paranoia. She continues to be loose and easily agitated, however is adjusting fairly well to unit and is more relaxed compared to yesterday. She is taking prn seroquel and other prn medications. Her pressured speech, flight of ideas, and reduced sleep patterns are all in line with xiao v. hypomania. Continued observation will aid in further diagnosis. PLAN: 1. Bipolar I disorder, Current or most recent episode manic, With psychotic features, F31.2 a. Seroquel 50 mg PO BID b. Seroquel 25 mg PRN c. Vistaril 25 mg q4h PRN for anxiety d. Obtain fasting lipid panel and fasting glucose. 2. Intrauterine shantel. [facility] has been consulted b. Continue vitamins. 3. Hypokalemia a. Resolved 4. Tobacco abuse disorder a. Nicoderm patch offered.
[2017-04-18] MEDS: ACETAMINOPHEN 325 MG TAB PO PRN ×2 (14:36→23:57)
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
[2017-04-18] MEDS: QUETIAPINE FUMARATE 25 MG TAB PO PRN (17:40)
[2017-04-18] MEDS: ALUMINUM/MAGNESIUM SUSP 30 ML UDC PO PRN ×2 (18:19→22:45)
[2017-04-18] MEDS: QUETIAPINE FUMARATE 100 MG TAB PO SCH (21:21)
[2017-04-19] MEDS: hydrOXYzine HCL 25 MG TAB PO PRN ×3 (02:41→22:14)
[2017-04-19] MEDS: ACETAMINOPHEN 325 MG TAB PO PRN (05:00)
[2017-04-19 06:14] VITALS: BP_SYST 118; BP_SYST 121; BP_DIAS 80; BP_DIAS 84; PULSE 91; PULSE 92; TEMP 37.3
[2017-04-19] MEDS: QUETIAPINE FUMARATE 100 MG TAB PO SCH (07:29)
[2017-04-19] MEDS: PRENATAL VITAMIN TAB PO SCH (07:29)
--- NOTE | 2017-04-19 12:33 | Medical Student: BHU Only ---
Psychiatric Progress Note SUBJECTIVE: The patient was seen and assessed today, and progress was reviewed with nursing. The patient reports doing "great". Sleep was "a little bit more"; noted to be for 2.5 hours by staff. However, she went back to bed for a few hours earlier this morning. She has been acting more appropriately, and while she still is tangential with pressured speech, it seems slightly more refined today. She was able to speak with staff in a controlled manner. She did struggle with making decisions regarding her lunch, requesting that she needed a paper menu because 'of her MS.' She said it was hard to choose without seeing it on paper. Otherwise, she is intermittently complaining of abdominal pain, and still somewhat fixated on her unborn child. OB has yet to see her as of now. She has also requested Macrobid on multiple occasions, and is convinced that she needs to be taking it. However, when told that she did not need it, she seemed to accept that as an answer. She has been tolerating her medications. The only thing she has remarked upon is that she is experiencing some dry mouth. She says that 'watermelon will fix that and keep me hydrated.' ROS: Denies feelings of depression or hopelessness. Acknowledges difficulty sleeping. Denies changes in appetite. Denies SI/HI. Denies hallucinations. MSE: Appearance is that of a groomed, casually dressed female that appears older than stated age. The patient is cooperative with interview. Eye contact is appropriate. Motor behavior is normal. Speech: Pressured, normal rate and tone. Affect: Enhanced Mood: "Great". Thought process: Continues to be tangential with FOI and some confabulations, however seems to be improved since yesterday. Perception: Without illusions, hallucinations Cognition: Patient is oriented to person, place, time. Her fund of knowledge is appropriate. Her intelligence is estimated to be appropriate for education level. Insight is estimated to be limited. Judgment is estimated to be poor. ASSESSMENT: This is a 32 y/o female presenting with signs and symptoms consistent with xiao with psychotic features. Her paranoia and delusions seems to fluctuate, as she still does continue to bring up scenarios that do not seem to be true. However, she is less agitated and having more appropriate interactions with staff and peers. Her speech is pressured but she is easier to direct and answers the majority of questions appropriately. PLAN: 1. Bipolar I disorder, Current or most recent episode manic, With psychotic features, F31.2 a. Seroquel increased to 100mg BID b. Continue Seroquel 25 mg prn. c. Continue vistaril 25 mg q4hr prn for anxiety. d. Obtain fasting lipid panel and fasting glucose. e. Reviewed side effects of seroquel, including the increased risk of metabolic syndrome, with patient. 2. Intrauterine a. OB consult pending b. Per UpToDate, seroquel has lowest incidence of congenital defects out of all other atypical antipsychotics. 3. Tobacco abuse disorder a. Nicoderm patch offered
[2017-04-19] MEDS ORDERED: SODIUM CHLORIDE 0.65% NA SOLN 45 ML (OCEAN) PRN (14:15)
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
[2017-04-19] MEDS: QUETIAPINE FUMARATE 25 MG TAB PO PRN (14:37)
--- NOTE | 2017-04-19 17:58 | Medical Consult ---
Consultation Date of Consultation: Apr 19, 2017. Attending Physician: Vidal Lilly M.D. Reason for Consultation: Early History of Present Illness Patient is a 32 y/o at 7w5d gestation via early first trimester ultrasound was admitted for acute psychosis. She states she had two early miscarriages. She denies any bleeding currently but is having some abdominal discomfort and pain and would like a repeat US to confirm a viable . Reviewed her medical history with her. 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 Last pap 2016 and normal. Periods were regular occurring monthly lasting 3-5 days. Past Medical/Surgical History Medical Problems: (1) Abdominal pain Status: Acute (2) Bipolar affective disorder, current episode manic with psychotic symptoms Status: Acute (3) Calcific tendinitis of right shoulder Status: Acute (4) H/O drug abuse Status: Chronic (5) H/O miscarriage, currently Status: Chronic (6) Hypokalemia Status: Acute (7) Hypokalemia Status: Acute (8) Low back pain Status: Acute (9) Multiple sclerosis Status: Chronic (10) Numbness Status: Acute (11) Paranoia Status: Acute (12) Status: Acute (13) Status: Acute (14) Psychosis Status: Acute (15) Shoulder pain, right Status: Acute (16) Spontaneous Status: Acute (17) Thought disorder Status: Acute (18) Threatened miscarriage Status: Acute (19) UTI (urinary tract infection) Status: Acute (20) Vaginal bleeding Status: Acute Family History FH: lung disease FHx: cancer Stroke Social History Smoking Status: Current Every Day Smoker Drug Use: marijuana, other (opiods) Marital Status: in relationship Housing Status: lives alone Occupation Status: disabled Allergies Coded Allergies: Loratadine (Verified Allergy, Severe, "TONGUE SWELLS", 04/16/17) Hydrocodone (Verified Adverse Reaction, Intermediate, "GETS MIGRAINES WHEN IT WEARS OFF", 04/16/17) Home Medications Reported Home Medications Medications Dose Route/Sig Max Daily Dose Days Date Category Vitamin (Prenat Multivit/[place]/Iron/Folic Ac) Tab 1 Tab PO DAILY 04/14/17 Reported Current Inpatient Medications Current Inpatient Medications Medications (Trade) Dose Ordered Sig/Sunny Route Start Time Stop Time Status Last Admin Dose Admin Acetaminophen (Tylenol Tab) 650 mg Q4H PRN PO 04/17/17 16:00 05/17/17 15:59 04/19/17 05:00 650 MG Bismuth Subsalicylate (Kaopectate Liqd) 15 ml PRN PRN PO 04/17/17 16:00 05/17/17 15:59 Al Hydroxide/Mg Hydroxide (Maalox Susp) 30 ml Q4H PRN PO 04/17/17 16:00 05/17/17 15:59 04/18/17 22:45 30 ML Magnesium Hydroxide (Milk Of Magnesia Susp) 30 ml DAILY PRN PO 04/17/17 16:00 05/17/17 15:59 Hydroxyzine HCl (Vistaril Tab) 50 mg HSZ PRN PO 04/17/17 16:00 05/17/17 15:59 04/19/17 02:41 50 MG Diphenhydramine HCl (Benadryl Inj) 25 mg Q4H PRN IM 04/17/17 16:00 05/17/17 15:59 04/18/17 11:05 25 MG Prenat Multivit/ [place]/Iron/Folic Ac ( Vitamin Tab) 1 tab QAM PO 04/18/17 09:00 05/18/17 08:59 04/19/17 07:29 1 TAB Quetiapine Fumarate (seroQUEL TAB) 25 mg BID PRN PO 04/18/17 17:15 05/18/17 17:14 04/19/17 14:37 25 MG Sodium Chloride ([place] Nasal [place]) 2 sprays 3XDQ4 PRN NA 04/19/17 14:15 05/19/17 14:14 Diphenhydramine HCl (Benadryl Cap) 25 mg 3XDQ4 PRN PO 04/19/17 14:15 05/19/17 14:14 Quetiapine Fumarate (seroQUEL TAB) 50 mg QAM PO 04/20/17 09:00 05/20/17 08:59 Quetiapine Fumarate (seroQUEL TAB) 200 mg HS PO 04/19/17 22:00 05/19/17 21:59 Review of Systems Constitutional: No fever, No chills, No sweats, No weight loss, No weakness, No fatigue, No problem reported Respiratory: No cough, No sputum, No wheezing, No shortness of breath, No dyspnea on exertion, No dyspnea at rest, No hemoptysis, No problem reported Cardiovascular: No chest pain, No orthopnea, No PND, No edema, No claudication , No palpitations, No problem reported Abdomen: + pain, + nausea Genitourinary - Female: + , No dysuria, No urinary frequency, No urinary urgency, No urinary incontinence, No urinary retention, No hematuria, No dysmenorrhea, No menorrhagia, No metrorrhagia, No rash, No vaginal bleeding, No vaginal discharge, No vaginal itching, No vulvodynia, No problem reported Integumentary: No rash, No itch, No new/changing skin lesions, No color change , No bleeding, No problem reported Physical Exam Date Time Temp Pulse Resp B/P (MAP) Pulse Ox O2 Delivery O2 Flow Rate FiO2 04/19/17 06:14 37.3 91 18 121/84 92 118/80 General Appearance: WD/WN, no apparent distress Respiratory/Chest: chest non-tender, lungs clear Cardiovascular: regular rate, rhythm Abdomen/GI: normal bowel sounds, soft Neurologic/Psych: alert, oriented x 3 Skin: normal color, warm/dry, no rash Assessment & Plan (1) Psychosis Status: Acute (2) Bipolar affective disorder, current episode manic with psychotic symptoms Status: Acute (3) H/O drug abuse Status: Chronic (4) H/O miscarriage, currently Status: Chronic Viability US ordered. Patient has an appointment scheduled with Pedro retana OB/ ASSOCIATE VICE PRESIDENT on May 02. Will most likely refer her to M secondary to her PMHx. Reviewed current medications and agree with plan. Will follow up in the office. Problem Qualifiers (1) H/O miscarriage, currently : Trimester: first trimester Qualified Codes: O09.291 - Supervision of with other poor reproductive or obstetric history, first trimester
[2017-04-19] MEDS: ALUMINUM/MAGNESIUM SUSP 30 ML UDC PO PRN (18:48)
--- NOTE | 2017-04-19 18:52 | DIAGNOSTIC IMAGING REPORT ---
TRANSVAGINAL CLINICAL HISTORY: Viability TECHNIQUE: Ultrasound COMPARISON STUDY: 04/12/2017 FINDINGS: Single, viable intrauterine estimated at 7 weeks 1 day gestational age. Cardiac activity is confirmed. heartbeat is 157 bpm IMPRESSION: Single, viable intrauterine . A heart rate is confirmed at 157 bpm The above report was generated using voice recognition software. It may contain grammatical, syntax or spelling errors. Electronically signed by: Chase Ayala M.D. 04/19/2017 6:51 PM Dictated Date/Time: 04/19/2017 6:49 PM
[2017-04-19] MEDS: QUETIAPINE FUMARATE 200 MG TAB PO SCH (20:45)
[2017-04-19] MEDS ORDERED: NURSING VERBAL MED ORDER ONE (21:00)
[2017-04-19] MEDS: ALUM HYDROX/MAG TRISILICATE CHEW PO PRN (22:14)
[2017-04-20] MEDS: hydrOXYzine HCL 25 MG TAB PO PRN ×2 (01:32→22:09)
[2017-04-20] MEDS: ACETAMINOPHEN 325 MG TAB PO PRN (01:34)
[2017-04-20 07:08] VITALS: BP 113/76; PULSE 81; TEMP 36.4
[2017-04-20] MEDS: QUETIAPINE FUMARATE 25 MG TAB PO SCH (07:27)
[2017-04-20] MEDS: PRENATAL VITAMIN TAB PO SCH (07:27)
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
[2017-04-20] MEDS: QUETIAPINE FUMARATE 25 MG TAB PO PRN (13:24)
[2017-04-20] MEDS: ALUMINUM/MAGNESIUM SUSP 30 ML UDC PO PRN (22:09)
[2017-04-20] MEDS: QUETIAPINE FUMARATE 200 MG TAB PO SCH (22:09)
[2017-04-21] MEDS: ACETAMINOPHEN 325 MG TAB PO PRN ×2 (05:38→22:24)
[2017-04-21 06:54] VITALS: BP 97/62; PULSE 67; TEMP 36.7
[2017-04-21] MEDS: PRENATAL VITAMIN TAB PO SCH (08:33)
[2017-04-21] MEDS: QUETIAPINE FUMARATE 25 MG TAB PO SCH (08:33)
[2017-04-21 09:01] LABS: BUN/CREATININE RATIO 17.6 (10-20); CREATININE 0.55 mg/dl (0.60-1.20); MAGNESIUM 2.2 mg/dl (1.8-2.4); POTASSIUM 3.9 mmol/L (3.5-5.1)
[2017-04-21 09:12] LABS: CHOLESTEROL/HDL RATIO 3.2; THYROID STIMULATING HORMONE 0.529 uIu/ml (0.300-4.500)
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
[2017-04-21] MEDS: QUETIAPINE FUMARATE 25 MG TAB PO PRN ×2 (12:00→16:10)
[2017-04-21] MEDS: ALUMINUM/MAGNESIUM SUSP 30 ML UDC PO PRN (20:54)
[2017-04-21] MEDS: ALUM HYDROX/MAG TRISILICATE CHEW PO PRN (21:32)
[2017-04-21] MEDS: QUETIAPINE FUMARATE 200 MG TAB PO SCH (22:18)
[2017-04-21] MEDS: hydrOXYzine HCL 25 MG TAB PO PRN (22:18)
[2017-04-22 06:53] VITALS: BP_SYST 103; BP_SYST 116; BP_DIAS 70; BP_DIAS 80; PULSE 75; TEMP 36.8
[2017-04-22] MEDS: QUETIAPINE FUMARATE 25 MG TAB PO SCH (08:26)
[2017-04-22] MEDS: PRENATAL VITAMIN TAB PO SCH (08:26)
[2017-04-22] MEDS: ACETAMINOPHEN 325 MG TAB PO PRN ×2 (08:29→15:35)
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
[2017-04-22] MEDS: QUETIAPINE FUMARATE 25 MG TAB PO PRN ×2 (10:43→15:35)
[2017-04-22] MEDS: ALUMINUM/MAGNESIUM SUSP 30 ML UDC PO PRN (10:44)
--- NOTE | 2017-04-22 11:18 | Medical Student: BHU Only ---
Psychiatric Progress Note CC: "I'm gonna lose my home." SUBJECTIVE: The patient was seen and assessed today, and progress was reviewed with nursing. The patient reports doing "better". Sleep was "better"; noted to be for 7 hours by staff. Patient had a 303 hearing today, which was approved. Overall, patient continues to be tangential. She is participating in most groups with very little staff prompting, but she continues to be inattentive and display paranoid, agitative behaviors. She is still convinced that many people in her family or community are out to get her, and that they are spreading rumors about her. She also continues to deny drug use, even though her tox screen came back positive for marijuana and benzodiazepines. She is upset regarding outcome of hearing, and continues to say that this will prevent her from doing the financial things she needs to do, and that she will lose her house. She still does not have any outpatient treatment arranged yet. She also was unaware of OB's recommendation to have follow up in [place] for her high risk . ROS: She reports sleeping and eating better. She denies SI/HI, depressed thoughts. She denies paranoia, hallucinations. MSE: Appearance is that of a neatly groomed, casually dressed female who appears older than stated age. The patient is cooperative with interview. Eye contact is appropriate. Motor behavior is normal. Speech:Regular volume, rate, tone. Noted that this is much improved since last interview. Affect: Appropriate for situation. Mood: "Frustrated". Thought process: Continues to be tangential, but with slightly less FOI and much less pressured. Confabulations still seem to be present. Thought content: Continues to be delusional and paranoid regarding others around her that are 'out to get her.' Content is without SI, and she denies HI, though she does condone trying to purchase a gun. Perception:Without hallucinations. Cognition: Fund of knowledge appropriate for level of education. Insight is estimated to be poor. Judgment is estimated to be poor. ASSESSMENT: This is a 32 y/o female on the unit with signs and symptoms consistent with an episode of xiao with psychotic features. She has improved significantly since admission, but she continues to have an expansive mood and is easily agitated. She has more insight into the fact that she is mentally ill, but has very poor judgement and insight in regards to her ability to leave the unit and take care of herself and her fetus. Though she has markedly improved sleep and eating, she needs further inpatients stay to titrate medication and arrange for outpatient care. PLAN: 1. Bipolar disorder, current episode manic severe with psychotic features F31.2 a. Continue with seraquil 200 mg, may consider increasing dose as she it also taking prn seraquel and tolerating well. b. Continue prn vistaril c. Arrange outpatient therapy and psychiatrist. Patient's preferred site is no longer open, can continue researching options in [facility]. 2. Intrauterine , high risk a. [facility] outpatient follow up with M should be arranged per OB consult. 3. Polysubstance abuse disorder a. Patient is unreliable in communicating her previous history of substance abuse, ranging from stating that she is sober to then acknowledging episodes of drinking in recent past. 4. Multiple Sclerosis a. Currently not on treatment. Occasionally attributes her difficulty making decisions and reading to MS, but otherwise does not report symptoms. b. May benefit from Neuro outpatient follow up. 5. Tobacco abuse disorder a. Currently not using patch or gum .Tolerating well.
[2017-04-22] MEDS: ALUM HYDROX/MAG TRISILICATE CHEW PO PRN ×2 (12:42→18:55)
[2017-04-22] MEDS ORDERED: QUETIAPINE FUMARATE 100 MG TAB PO SCH (22:00)
[2017-04-23 07:10] VITALS: BP_SYST 119; BP_SYST 127; BP_DIAS 71; BP_DIAS 83; PULSE 78; PULSE 84; TEMP 36.6
[2017-04-23] MEDS: PRENATAL VITAMIN TAB PO SCH (07:35)
[2017-04-23] MEDS: QUETIAPINE FUMARATE 25 MG TAB PO SCH (07:35)
[2017-04-23] MEDS: ACETAMINOPHEN 325 MG TAB PO PRN (08:26)
[2017-04-23] MEDS: ALUM HYDROX/MAG TRISILICATE CHEW PO PRN (12:16)
[2017-04-23] MEDS: QUETIAPINE FUMARATE 25 MG TAB PO PRN (12:16)
[2017-04-23] MEDS ORDERED: SRQ100 PO (12:17)
[2017-04-23] MEDS ORDERED: QUET1TAB32 PO (12:17)
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
== END 2017-04-23 13:08 | disposition home or self-care (01) | DRG 781 ==
LOC: C.MHU 14:00
PROVIDERS: ADMIT Psychiatry & Neurology Psychiatry; ATTEND Psychiatry & Neurology Psychiatry
DX: O99.341 Other mental disorders complicating pregnancy, first trimester (principal); F31.2 Bipolar disorder, current episode manic severe with psychotic features; O99.321 Drug use complicating pregnancy, first trimester; O09.521 Supervision of elderly multigravida, first trimester; Z3A.01 Less than 8 weeks gestation of pregnancy; F12.10 Cannabis abuse, uncomplicated; F19.10 Other psychoactive substance abuse, uncomplicated; G35 Multiple sclerosis; F11.10 Opioid abuse, uncomplicated; O09.291 Supervision of pregnancy with other poor reproductive or obstetric history, first trimester; O99.331 Smoking (tobacco) complicating pregnancy, first trimester; F17.200 Nicotine dependence, unspecified, uncomplicated; O26.891 Other specified pregnancy related conditions, first trimester

== ENCOUNTER 2017-10-13 20:15 | Outpatient (CLI) | payer OTHER ==
[~2017-10-13 20:15] MED LIST changes: -ACET325T96 PO; -CHOL200010 PO; -ELET40TA PO; -ESCI1TAB10 PO; -INTE1KIT5 IM; -MONT1TAB3 PO; -NARA2.5T2 PO; -NITR-5 PO; -OXYC-106 PO; +QUET-115 PO; +QUET1TAB32 PO; -RIBO100T9 PO; -SLWMEC PO; -SUMA50TA15 PO; -SUMA6KIT IM
[2017-10-13] MEDS ORDERED: MAG SULFATE BOLUS FROM BAG IV ONE ×2 (20:45→21:15)
[2017-10-13] MEDS ORDERED: LABETALOL HCL IV 5 MG/ML 20ML IV PRN (21:15)
[2017-10-13 21:21] LABS: INR 0.9 (0.9-1.1); PTT PATIENT 28.9 SECONDS (21.0-31.0)
[2017-10-13 21:24] LABS: ALT/SGPT 59 U/L (12-78); AST/SGOT 74 U/L (15-37); BLOOD UREA NITROGEN 8 mg/dl (7-18); CALCIUM 8.2 mg/dl (8.5-10.1); CARBON DIOXIDE 22 mmol/L (21-32); CREATININE 0.58 mg/dl (0.60-1.20); GLUCOSE 85 mg/dl (70-99); POTASSIUM 4.1 mmol/L (3.5-5.1); SODIUM 133 mmol/L (136-145); URIC ACID 6.3 mg/dl (2.6-7.2)
[2017-10-13] MEDS: MAGNESIUM SULFATE / WTR 1,000 ML IV SCH ×2 (21:27→21:45)
[2017-10-13] MEDS ORDERED: MAGNESIUM SULFATE 40GM/ WTR 1,000 ML BAG IV ONE (21:28)
[2017-10-13 21:31] LABS: BASO % 0.3 %; BASO ABS # 0.05 K/uL (0-0.2); EOS ABS # 0.19 K/uL (0-0.5); HEMATOCRIT 42.5 % (37-47); HEMOGLOBIN 14.7 g/dL (12.0-16.0); IG# 0.12 K/uL (0.00-0.02); LYMPH % 8.8 %; LYMPH ABS # 1.63 K/uL (1.2-3.4); MEAN CELL VOLUME 89.9 fL (80-100); MEAN CORPUSCULAR HEMOGLOBIN 31.1 pg (25-34); MEAN CORPUSCULAR HGB CONC 34.6 g/dl (32-36); MEAN PLATELET VOLUME 10.5 fL (7.4-10.4); MONO % 5.9 %; NEUT % 83.4 %; PLATELET COUNT 98 K/uL (130-400); RED CELL DISTRIBUTION WIDTH CV 14.1 % (11.5-14.5); RED CELL DISTRIBUTION WIDTH SD 46.3 fL (36.4-46.3); WHITE BLOOD COUNT 18.59 K/uL (4.8-10.8)
== END 2017-10-13 22:05 | disposition short-term general hospital (02) ==
LOC: C.OPB 20:15 → C.LD 20:15 → C.OPB 22:05
PROVIDERS: ATTEND Obstetrics & Gynecology
DX: O14.13 Severe pre-eclampsia, third trimester (principal); O99.353 Diseases of the nervous system complicating pregnancy, third trimester; G35 Multiple sclerosis; O99.333 Smoking (tobacco) complicating pregnancy, third trimester; F17.200 Nicotine dependence, unspecified, uncomplicated; Z3A.33 33 weeks gestation of pregnancy; Z90.49 Acquired absence of other specified parts of digestive tract; Z96.60 Presence of unspecified orthopedic joint implant